=== PATIENT | female | born 1995 | race Caucasian/White ===

== ENCOUNTER 2021-09-29 17:01 | Emergency (ER) | payer BC, SELFPAY ==
[2021-09-29 17:06] VITALS: BP 106/69; PULSE 83; RESP 16; TEMP 36.8; O2SAT 99; BMI 28.2
--- NOTE | 2021-09-29 18:01 | CRLHL7_ITS ---
For Patients: As a result of the Century Cures Act, medical imaging exams and procedure reports are released immediately into your electronic medical record. You may view this report before your referring provider. If you have questions, please contact your health care provider. INDICATION: Mid to right lower quadrant abdominal pain COMPARISON: None TECHNIQUE: CT examination of the abdomen and pelvis was performed following the uneventful intravenous administration of 85 cc of Isovue 370. Thin section axial images were obtained from the lung bases through the pubic symphysis. Oral contrast was not administered. Please note that all CT scans at this facility use dose modulation, iterative reconstruction, and/or weight-based dosing when appropriate to reduce radiation dose to as low as reasonably achievable. FINDINGS: LUNG BASES: The lung bases as visualized appear normal.The heart size is normal at the lung bases. LIVER/BILIARY SYSTEM:The liver is normal in size and configuration. There is no focal mass and there is no intra- or extra hepatic biliary ductal dilatation.The gall bladder appears normal. ADRENALS: Normal KIDNEYS, URETERS and BLADDER:The kidneys appear normal. No visible mass, calculus or hydronephrosis. The ureters and bladder as visualized appear normal. SPLEEN:Normal appearance. PANCREAS: Appears normal. RETROPERITONEUM and MESENTERY: There is no mass, adenopathy or aortic aneurysm. GASTROINTESTINAL SYSTEM: There is no evidence of diverticulitis, colitis, mechanical obstruction, or appendicitis. The small bowel as visualized appears normal.The appendix is well seen and appears normal PELVIS: No mass, adenopathy or free fluid.No adnexal mass OSSEOUS STRUCTURES and ABDOMINAL WALL: There is an age-appropriate appearance of the osseous structures.No significant abdominal wall defect. OTHER: No free fluid or free air. IMPRESSION: Normal examination. No visible cause for abdominal pain. Please note that all CT scans at this facility use dose modulation, iterative reconstruction, and/or weight-based dosing when appropriate to reduce radiation dose to as low as reasonably achievable. Dictated by Lino Chaudhry MD @ 09/29/2021 7:15:10 PM (Electronically Signed)
--- NOTE | 2021-09-29 18:05 | ED.ABDPAIN ---
HPI - Abdominal Pain General Chief Complaint: Abdominal Pain Stated Complaint: UPPER ABDOMINAL PAIN Time Seen by Provider: 09/29/21 17:06 History of Present Illness HPI narrative: This 26-year-old female comes in with abdominal pain that awoke her from sleep this morning at 1:30 a.m.. She measured a temperature of 101? F. She took some mxen-lry-meujlry pain medicines and went back to bed. She was awake again at 3:30 a.m.. She states that the pain seems to come and go and it radiates along her upper abdomen. She did have nausea with 1 episode of vomiting. She states that she does not care to eat food and has not taken any food today. She does not report any dysuria. She thinks that she is not . Prior to this she was in good health. Related Data Home Medications Medication Instructions Recorded Confirmed lamotrigine 100 mg tablet 100 mg PO Q12H 09/29/21 09/29/21 Previous Rx's Medication Instructions Recorded ketorolac 10 mg tablet 10 mg PO TID 5 Days #15 tab 09/29/21 ondansetron HCl 4 mg tablet 4 mg PO Q6H #20 tab 09/29/21 pantoprazole 20 mg tablet,delayed 20 mg PO DAILY #20 tab 09/29/21 release (Protonix) Allergies Allergy/AdvReac Type Severity Reaction Status Date / Time Sulfa (Sulfonamide Allergy Severe Hives Verified 09/29/21 17:10 Antibiotics) Review of Systems Narrative Constitutional: No fevers, no weight gain or loss. Eyes: No discharge. No vision changes. HENT: No congestion, no sore throat, no ear pain. Cardiovascular: No chest pain, no palpitations. Respiratory: No shortness of breath, no wheezes, no cough. Gastrointestinal: Abdominal pain as described above. Nausea with 1 episode of vomiting. Genitourinary: No dysuria, no hematuria. Musculoskeletal: Normal range of motion. Skin: No rashes, no pruritis. Neurological: No dizziness, weakness, sensory change, speech change. Endo/Heme/Allergies: No bruising or bleeding. No polydipsia. Pysch: no suicidality, no anxiety, no insomnia. All other systems reviewed and are negative. PFSH PFSH Social History Smoking Status: Former smoker Do you use any of these nicotine containing products: None Second hand tobacco smoke exposure: No How often do you have a drink containing alcohol: never How often do you have six or more drinks on one occasion: Never AUDIT-C Alcohol total score: 0 Non-prescribed substance use: denies use Exam Narrative: Exam Narrative: Constitutional: Well-developed, well-nourished, no acute distress. HEENT: Normocephalic, atraumatic. Neck: Normal range of motion. Nontender. Supple. Heart: Regular. No murmurs. Normal rate. Intact distal pulses. Lungs: Clear to auscultation. No chest discomfort. No wheezes, rhonchi, or rales. Abdomen: Normal bowel sounds. Tenderness at McBurney's point. Rovsing sign is negative. There is distinct rebound tenderness. Genitalia: Deferred. Back: No midline tenderness. Normal range of motion. Extremities: Normal range of motion. No injury. Skin: Intact. No rash. Warm. No erythema or pallor. Neurologic: No altered sensation. No weakness. Alert and oriented. Psychiatric: No suicidality. No anxiety or depression. No insomnia. Nursing notes and vitals signs are reviewed. Const: Vital Signs, click to edit/add: Vital Signs - 24 hr 09/29/21 17:06 09/29/21 19:00 Temperature 98.3 F Pulse Rate [Pulse Oximeter] 83 71 Respiratory Rate 16 Blood Pressure [Ri t Upper Arm] 106/69 108/73 Pulse Oximetry 99 98 Course Vital Signs Vital signs: Initial Vital Signs Temperature 98.3 F 09/29/21 17:06 Temperature Source Temporal Artery Scan 09/29/21 17:06 Pulse Rate 83 09/29/21 17:06 Respiratory Rate 16 09/29/21 17:06 Blood Pressure 106/69 09/29/21 17:06 Blood Pressure Mean 81 09/29/21 17:06 Blood Pressure Position Sitting 09/29/21 17:06 Pulse Oximetry 99 09/29/21 17:06 Oxygen Delivery Method 09/29/21 17:06 Vital Signs Temperature 98.3 F 09/29/21 17:06 Pulse Rate 83 09/29/21 17:06 Respiratory Rate 16 09/29/21 17:06 Blood Pressure 106/69 09/29/21 17:06 Pulse Oximetry 99 09/29/21 17:06 Temperature 98.3 F 09/29/21 17:06 Pulse Rate 71 09/29/21 19:00 Respiratory Rate 16 09/29/21 17:06 Blood Pressure 108/73 09/29/21 19:00 Pulse Oximetry 98 09/29/21 19:00 MDM - Abdominal Pain MDM Narrative Medical decision making narrative: This patient comes in with abdominal pain as described above. She does have distinct rebound tenderness and tenderness when palpating in the right lower quadrant. She described pain as intermittent in her upper abdomen and currently does not have any tenderness when palpating along her upper abdomen. For these reasons I did do a CT scan of her abdomen and pelvis with IV contrast which showed no sign of appendicitis. Actually her labs and imaging results are all in normal range. This is reassuring to the patient. She is okay to return home and received prescriptions for Protonix, Toradol, and Zofran. I advised her to follow-up with her primary physician if pain is persistent. She can return here if worsening pain happens. Lab Data Labs: Lab Results 09/29/21 09/29/21 09/29/21 Range/Units 18:10 18:10 18:10 WBC 6.78 (4.50-11.00) K/uL RBC 4.38 (4.00-5.20) m/uL Hgb 12.7 (12.0-16.0) gm/dL Hct 39.8 (33.0-51.0) % MCV 91 (80-100) fL MCH 29 (26-34) pg MCHC 32 (32-36) gm/dL RDW Coeff of Dante 12.0 (11.5-15.5) % Plt Count 261 (140-440) K/uL Neut % (Auto) 69.4 (42.0-72.0) % Lymph % (Auto) 22.3 (20-44) % [place] % (Auto) 6.9 (0.0-11.0) % Eos % (Auto) 1.3 (0.0-7.0) % Baso % (Auto) 0.0 (0.0-3.0) % Neut # (Auto) 4.70 (1.7-7.0) K/uL Lymph # (Auto) 1.51 (0.90-2.90) K/uL [place] # (Auto) 0.50 (0.00-0.90) K/UL Eos # (Auto) 0.09 (0.00-0.50) K/uL Baso # (Auto) 0.00 (0.00-0.30) K/uL Abs Immat Gran (auto) 0.01 (0.00-0.30) K/uL Sodium 137 (135-149) mmol/L Potassium 3.8 (3.6-5.1) mmol/L Chloride 104 (96-114) mmol/L Carbon Dioxide 26 (20-32) mmol/L BUN 18 (5-24) mg/dL Creatinine 0.7 (0.5-1.5) mg/dL Estimated Creat Clear 115.01 Estimated GFR 123 ml/min Glucose 88 (60-115) mg/dL Calcium 9.0 (8.4-10.6) mg/dL HCG, Qual Negative (Negative) Imaging Data CT scan - abdomen: Radiologist's impression: Normal examination. No visible cause for abdominal pain. Discharge Plan Discharge Clinical Impression: Abdominal pain Patient Disposition: Home, Self-Care Condition: Stable Instructions: Abdominal Pain (ED) Additional Instructions: Take medications as needed and prescribed. Follow up with primary physician for further evaluation if pain is persistent. Return to emergency department if worsening symptoms happen. Prescriptions: New ondansetron HCl 4 mg tablet 4 mg PO Q6H Qty: 20 0RF ketorolac 10 mg tablet 10 mg PO TID 5 Days Qty: 15 0RF pantoprazole [Protonix] 20 mg tablet,delayed release (DR/EC) 20 mg PO DAILY Qty: 20 2RF No Action lamotrigine 100 mg tablet 100 mg PO Q12H 0RF Follow Up/Referrals: Kaylee Trejo MD [Primary Care Provider] - Stand Alone Forms: [employer] Info Instructions
[2021-09-29 18:23] LABS: Eosinophils Absolute Auto 0.09 K/uL (0.00-0.50); Eosinophils Percent Auto 1.3 % (0.0-7.0); Hematocrit 39.8 % (33.0-51.0); Hemoglobin* 12.7 gm/dL (12.0-16.0); Immature Granulocytes Abs Auto 0.01 K/uL (0.00-0.30); Lymphocytes Absolute Auto 1.51 K/uL (0.90-2.90); Lymphocytes Percent Auto 22.3 % (20-44); Mean Corpuscular HGB Conc 32 gm/dL (32-36); Mean Corpuscular Hemoglobin 29 pg (26-34); Mean Corpuscular Volume 91 fL (80-100); Monocytes Percent Auto 6.9 % (0.0-11.0); Neutrophils Percent Auto 69.4 % (42.0-72.0); Platelet Count* 261 K/uL (140-440); Red Blood Count 4.38 m/uL (4.00-5.20); Slide Review Reflex No; White Blood Count* 6.78 K/uL (4.50-11.00)
[2021-09-29 18:36] LABS: Chloride* 104 mmol/L (96-114); Potassium* 3.8 mmol/L (3.6-5.1); Sodium* 137 mmol/L (135-149)
[2021-09-29 18:39] LABS: Carbon Dioxide* 26 mmol/L (20-32); Creatinine* 0.7 mg/dL (0.5-1.5); Est. Creatinine Clearance* 115.01; Estimated Glomerular Filt Rate 123 ml/min
[2021-09-29 18:40] LABS: Blood Urea Nitrogen* 18 mg/dL (5-24); Glucose* 88 mg/dL (60-115)
[2021-09-29 18:43] LABS: HCG Qualitative Serum* Negative (Negative)
[2021-09-29 19:00] VITALS: BP 108/73; PULSE 71; O2SAT 98
[2021-09-29 19:30] VITALS: BP 107/62
[2021-09-29 20:00] VITALS: BP 106/64
== END 2021-09-29 20:12 | disposition home or self-care (01) ==
PROVIDERS: Emergency Provider Emergency Medicine Emergency Medical Services; PCP Family Medicine
DX: R10.9 Unspecified abdominal pain (principal)
CPT/HCPCS: 36415; 74177; 80048; 84703; 85025; 99284; Q9967

== ENCOUNTER 2022-02-04 09:57 | Emergency (ER) | payer BC, SELFPAY ==
--- NOTE | 2022-02-04 10:02 | CRLHL7_ITS ---
For Patients: As a result of the Century Cures Act, medical imaging exams and procedure reports are released immediately into your electronic medical record. You may view this report before your referring provider. If you have questions, please contact your health care provider. Indication: Pelvic pain, medical 1 month prior. Technique: Grayscale, spectral and color Doppler images of the pelvis, transabdominal and transvaginal Comparison: None Findings: The uterus is anteverted and measures 9.8 x 4.2 x 5.0 centimeters. No uterine mass. The endometrium is heterogeneous and measures up to 1.4 centimeters. There is significant vascularity near the uterine fundus (series 2 image 7424). The ovaries appear normal. No ovarian mass. Normal ovarian blood flow. No significant free fluid. Visualized bladder is unremarkable. Impression: Heterogeneous, hypervascular endometrium, especially near the fundus which may represent retained products of conception and blood products. A vascular malformation is also a consideration although considered less likely. Dictated by Tolu Montesinos MD @ 02/04/2022 12:05:40 PM (Electronically Signed)
[2022-02-04 10:03] VITALS: O2SAT 95
[2022-02-04 10:11] VITALS: BP 118/81; PULSE 89; RESP 16; TEMP 36.7; O2SAT 100
--- NOTE | 2022-02-04 10:23 | ED_ITS ---
HPI - Abdominal Pain General Time Seen by Provider: 10:23 Date Seen: 02/04/22 Chief Complaint: Abdominal Pain Stated Complaint: Termination preg Halloween, still preg poss septic Time Seen by Provider: 02/04/22 10:23 Source: patient, RN notes reviewed and other (Phone report from Dr. Sargent in Urgent Care) Mode of arrival: ambulatory Limitations: no limitations History of Present Illness HPI narrative: Patient is a 26-year-old female referred to us from urgent care where she was seen by Dr. Sargent. She was worried about a septic . However, on talking to the patient she had oral medicine on I believe through the [facility] for medically induced . This past weekend she had severe perineal pain, went to clinic this week at [facility] and was diagnosed with herpes. This would be an initial herpes outbreak for her. She last use ibuprofen around 3 or so this morning. She is having severe pelvic pain. She states she did have prior ongoing positive test at the end of January, did have an hCG level which she reported to be 65 at clinic. She is also reporting some mild scratchy sore throat with the scratchy cough that is developed this week. Reportedly had fever in the last couple days up to 102.6. Related Data Patient : Yes Home Medications Medication Instructions Recorded Confirmed valacyclovir 500 mg tablet 500 mg PO BID 02/04/22 02/04/22 (Valtrex) Allergies Allergy/AdvReac Type Severity Reaction Status Date / Time Sulfa (Sulfonamide Allergy Severe Hives Verified 02/04/22 09:26 Antibiotics) Review of Systems Status of ROS Reports: 10 or more systems reviewed and unremarkable except as noted in History and below PFSH PFSH Social History Smoking Status: Former smoker Do you use any of these nicotine containing products: None Second hand tobacco smoke exposure: No How often do you have a drink containing alcohol: never How often do you have six or more drinks on one occasion: Never AUDIT-C Alcohol total score: 0 Non-prescribed substance use: denies use service: No Exam Const: Vital Signs, click to edit/add: Vital Signs - 24 hr 02/04/22 10:11 02/04/22 10:03 Temperature 98.1 F Pulse Rate [Pulse Oximeter] 89 Respiratory Rate 16 Blood Pressure [Ri ght Upper Arm] 118/81 Pulse Oximetry 100 95 Oxygen Delivery Me thod Room Air Documenting provider has reviewed patient's vital signs: yes Common normals: average body habitus, oriented x3, no limitations and alert General appearance: cooperative and in distress (Walks very slowly and gingerly) moderate HENMT: Common normals: normocephalic, head/scalp atraumatic, hearing grossly normal bilaterally, external nose normal, nasal mucous membranes and turbinates normal, moist oral mucous membranes, oropharynx normal, dentition normal and gingiva normal Head and scalp: normocephalic and atraumatic Nose: external nose normal and nasal mucous membranes and turbinates normal Eye: Common normals: PERRL, EOMs intact bilaterally, conjunctivae normal and no scleral icterus Conjunctiva: conjunctiva(e) normal Pupil: PERRL Neck & C-Spine: Common normals: full ROM, no lymphadenopathy, supple, no meningeal signs, no JVD and thyroid normal Thyroid: thyroid normal Resp: Common normals: normal respiratory effort, no retractions, no use of accessory muscles and clear to auscultation bilaterally Auscultation: clear to auscultation bilaterally Cardio: Common normals: no JVD, regular rate, regular rhythm, S1 normal heart sound, S2 normal heart sound, no gallops, no clicks and no murmurs Rate: regular rate Rhythm: regular rhythm Heart sounds: S1 normal and S2 normal GI: Other: Complains abdominal pain throughout her abdomen, no rebound or guarding and no masses. Belly is nondistended, normal bowel sounds. : Other: Is extremely tender in her perineum. Has some whitish exudate along the base of the vaginal introitus and along that right perineum. No significant erythema seen but patient is tender to the point I really cannot visualize the area very well. Her labia are normal. I do not feel any significant inguinal adenopathy at this time. Neuro: Common normals: oriented x3 Sensorium/orientation: alert Meningeal signs: no meningeal signs Course Course Hospital Course: Will obtain a pelvic ultrasound to see there still visualization of any retained products of conception, with her fever and the reported HSV, think the pelvic pain and the symptoms might be more from her initial herpes outbreak. She is obviously very painful. Will give her 15 mg IV Toradol. We will also do full complement of blood work, also look at influenza and COVID given her respiratory symptoms. Will need to sort her symptoms and this history out a bit more, will rely on the imaging and labs to help direct us. She is hemodynamically stable at this time, afebrile here. Would be unlikely to have a septic wit hout instrumentation. Reevaluation(s) Reevaluation #1: Reviewed with patient my conversation with Dr. Abarca. She is to follow up in [facility] clinic early next week, I will give her the phone number. She needs to complete the Valtrex. Did discuss pain management. She states she is restricted, all of her medications need to come through her doctor. She will continue on Tylenol ibuprofen. I will give her 50 mg oral tramadol here. There may indeed still be some retained products of conception the uterus, hCG is trending down however. She is not actively hemorrhaging or bleeding. This can be followed clinically. A D&C would not be indicated in certainly should not be done while she is having such an active herpes outbreak. Patient unfortunately contracted this with a 1 time partner the did not disclose anything to her. She states she cried when she found out. I did attempt to reassure her and review with her that this will feel better eventually. Time: 12:47 Consultations Consultation #1: Called Dr. Abarca from [facility]. Reviewed the case. She agrees D&C is not indicated at this time. Would follow clinically. We will get her the phone number to schedule followup in clinic next week. Time: 12:35 Vital Signs Vital signs: Initial Vital Signs Pulse Oximetry 95 02/04/22 10:03 Vital Signs Pulse Oximetry 95 02/04/22 10:03 Temperature 98.1 F 02/04/22 10:11 Pulse Rate 89 02/04/22 10:11 Respiratory Rate 16 02/04/22 10:11 Blood Pressure 118/81 02/04/22 10:11 Pulse Oximetry 100 02/04/22 10:11 Oxygen Delivery Method 02/04/22 10:11 MDM - Abdominal Pain Lab Data Attestation: I reviewed the patient's lab results. Labs: Lab Results 02/04/22 02/04/22 02/04/22 Range/Units 10:11 10:45 10:55 WBC 8.14 (4.50-11.00) K/uL RBC 4.74 (4.00-5.20) m/uL Hgb 13.6 (12.0-16.0) gm/dL Hct 42.8 (33.0-51.0) % MCV 90 (80-100) fL MCH 29 (26-34) pg MCHC 32 (32-36) gm/dL RDW Coeff of Dante 12.3 (11.5-15.5) % Plt Count 226 (140-440) K/uL Neut % (Auto) 63.4 (42.0-72.0) % Lymph % (Auto) 28.6 (20-44) % [place] % (Auto) 5.2 (0.0-11.0) % Eos % (Auto) 2.3 (0.0-7.0) % Baso % (Auto) 0.1 (0.0-3.0) % Neut # (Auto) 5.16 (1.7-7.0) K/uL Lymph # (Auto) 2.33 (0.90-2.90) K/uL [place] # (Auto) 0.40 (0.00-0.90) K/UL Eos # (Auto) 0.19 (0.00-0.50) K/uL Baso # (Auto) 0.01 (0.00-0.30) K/uL Abs Immat Gran (auto) 0.03 (0.00-0.30) K/uL Imm/Tot Granulo (auto) 0.4 % Diff Slide Review Acceptable Review (Acceptable) Sodium (135-149) mmol/L Potassium (3.6-5.1) mmol/L Chloride (96-114) mmol/L Carbon Dioxide (20-32) mmol/L BUN (5-24) mg/dL Creatinine (0.5-1.5) mg/dL Estimated Creat Clear Estimated GFR ml/min Glucose (60-115) mg/dL Lactate (0.5-1.9) mmol/L Calcium (8.4-10.6) mg/dL Total Bilirubin (0.1-1.5) mg/dL AST (12-35) U/L ALT (4-35) U/L Alkaline Phosphatase (40-150) U/L C-Reactive Protein (0.5-1.0) mg/dL Total Protein (6.0-8.3) g/dL Albumin (3.3-5.0) g/dL HCG, Quant mIU/mL Urine Color Yellow (Yellow) Urine Appearance Slightly Cloudy A (Clear) Urine pH 5.5 (5.0-8.5) Ur Specific [place] 1.025 (1.000-1.030) Urine Protein Negative (Negative) Urine Glucose (UA) Negative (Negative) Urine Ketones Negative (Negative) Urine Blood Trace-intact A (Negative) Urine Nitrite Negative (Negative) Urine Bilirubin Negative (Negative) Urine Urobilinogen 0.2 (0.2-1.0) Ur Leukocyte Esterase 1+ A (Negative) Urine RBC 0-2 (0-2) Urine WBC 5-10 A (0-5) Ur Squamous Epith Cells Moderate A (None-Few) Urine Bacteria Moderate A (None) SARS-CoV-2 (PCR) Negative SARS-CoV-2 (Negative) Influenza Type A (PCR) Negative PCR FLU A (Negative) Influenza Type B (PCR) Negative PCR FLU B (Negative) 02/04/22 02/04/22 02/04/22 Range/Units 10:55 10:55 10:55 WBC (4.50-11.00) K/uL RBC (4.00-5.20) m/uL Hgb (12.0-16.0) gm/dL Hct (33.0-51.0) % MCV (80-100) fL MCH (26-34) pg MCHC (32-36) gm/dL RDW Coeff of Dante (11.5-15.5) % Plt Count (140-440) K/uL Neut % (Auto) (42.0-72.0) % Lymph % (Auto) (20-44) % [place] % (Auto) (0.0-11.0) % Eos % (Auto) (0.0-7.0) % Baso % (Auto) (0.0-3.0) % Neut # (Auto) (1.7-7.0) K/uL Lymph # (Auto) (0.90-2.90) K/uL [place] # (Auto) (0.00-0.90) K/UL Eos # (Auto) (0.00-0.50) K/uL Baso # (Auto) (0.00-0.30) K/uL Abs Immat Gran (auto) (0.00-0.30) K/uL Imm/Tot Granulo (auto) % Diff Slide Review (Acceptable) Sodium 141 (135-149) mmol/L Potassium 4.1 (3.6-5.1) mmol/L Chloride 107 (96-114) mmol/L Carbon Dioxide 26 (20-32) mmol/L BUN 14 (5-24) mg/dL Creatinine 0.7 (0.5-1.5) mg/dL Estimated Creat Clear 110.55 Estimated GFR 123 ml/min Glucose 100 (60-115) mg/dL Lactate 0.7 (0.5-1.9) mmol/L Calcium 9.0 (8.4-10.6) mg/dL Total Bilirubin 0.3 (0.1-1.5) mg/dL AST 30 (12-35) U/L ALT 34 (4-35) U/L Alkaline Phosphatase 70 (40-150) U/L C-Reactive Protein 2.5 H (0.5-1.0) mg/dL Total Protein 8.0 (6.0-8.3) g/dL Albumin 4.5 (3.3-5.0) g/dL HCG, Quant 34.02 mIU/mL Urine Color (Yellow) Urine Appearance (Clear) Urine pH (5.0-8.5) Ur Specific [place] (1.000-1.030) Urine Protein (Negative) Urine Glucose (UA) (Negative) Urine Ketones (Negative) Urine Blood (Negative) Urine Nitrite (Negative) Urine Bilirubin (Negative) Urine Urobilinogen (0.2-1.0) Ur Leukocyte Esterase (Negative) Urine RBC (0-2) Urine WBC (0-5) Ur Squamous Epith Cells (None-Few) Urine Bacteria (None) SARS-CoV-2 (PCR) (Negative) Influenza Type A (PCR) (Negative) Influenza Type B (PCR) (Negative) Imaging Data Ultrasound pelvis: Attestation: I have reviewed the pertinent imaging results. Radiologist's impression: Patient: AMIRA MYLES Facility:?[facility] Patient ID:?[id number] Site Patient ID:?[id number]. Site :?[id number] Study:? Pelvis -02/04/2022 11:45:49 AM Ordering Physician:?Suchomel-Eastman Cheryle Final Report: Indication: Pelvic pain, medical 1 month prior. Technique: Grayscale, spectral and color Doppler images of the pelvis, transabdominal and transvaginal Comparison: None Findings: The uterus is anteverted and measures 9.8 x 4.2 x 5.0 centimeters. No uterine mass. The endometrium is heterogeneous and measures up to 1.4 centimeters. There is significant vascularity near the uterine fundus (series 2 image [id number]). The ovaries appear normal. No ovarian mass. Normal ovarian blood flow. No significant free fluid. Visualized bladder is unremarkable. Impression: Heterogeneous, hypervascular endometrium, especially near the fundus which may represent retained products of conception and blood products. A vascular malformation is also a consideration although considered less likely. Dictated by Tolu Montesinos MD @ 02/04/2022 12:05:40 PM (Electronic Signature) Critical Care Time Critical Care Time Critical Care Time: No Discharge Plan Discharge Clinical Impression: Elevated serum hCG, Genital herpes, Complication following medical Patient Disposition: Home, Self-Care Condition: Stable Instructions: Genital Herpes Simplex (ED) Additional Instructions: Call [phone] on Sunday morning to get scheduled for follow-up in women's health clinic. Please let them know that Dr. Abarca requested you to be seen early this next week. Continue with Tylenol and ibuprofen per bottle directions as needed for pain control. Need to complete your Valtrex that you are on. Activity Level: Activity as Tolerated Prescriptions: No Action valacyclovir [Valtrex] 500 mg tablet 500 mg PO BID Follow Up/Referrals: Kaylee Trejo MD [Primary Care Provider] - Stand Alone Forms: [employer] Info Instructions
[2022-02-04] MEDS: KETOROLAC 15 MG/ML inj IVP (11:01)
[2022-02-04 11:03] LABS: Lactate* 0.7 mmol/L (0.5-1.9)
[2022-02-04 11:04] LABS: Basophils Absolute Auto 0.01 K/uL (0.00-0.30); Basophils Percent Auto 0.1 % (0.0-3.0); Eosinophils Absolute Auto 0.19 K/uL (0.00-0.50); Eosinophils Percent Auto 2.3 % (0.0-7.0); Hematocrit 42.8 % (33.0-51.0); Hemoglobin* 13.6 gm/dL (12.0-16.0); Immature Granulocytes Abs Auto 0.03 K/uL (0.00-0.30); Immature Granulocytes Pct Auto 0.4 %; Lymphocytes Absolute Auto 2.33 K/uL (0.90-2.90); Lymphocytes Percent Auto 28.6 % (20-44); Mean Corpuscular HGB Conc 32 gm/dL (32-36); Mean Corpuscular Hemoglobin 29 pg (26-34); Mean Corpuscular Volume 90 fL (80-100); Monocytes Percent Auto 5.2 % (0.0-11.0); Neutrophils Absolute Auto 5.16 K/uL (1.7-7.0); Neutrophils Percent Auto 63.4 % (42.0-72.0); Platelet Count* 226 K/uL (140-440); RDW Coefficient of Variation % 12.3 % (11.5-15.5); Red Blood Count 4.74 m/uL (4.00-5.20); White Blood Count* 8.14 K/uL (4.50-11.00)
[2022-02-04 11:15] LABS: Appearance Urine Slightly Cloudy (Clear); Bilirubin Urine Negative (Negative); Blood Urine Trace-intact (Negative); Color Urine Yellow (Yellow); Glucose Urine Negative (Negative); Ketones Urine Negative (Negative); Leukocyte Esterase Urine 1+ (Negative); Nitrite Urine Negative (Negative); Protein Urine Negative (Negative); Specific Gravity Urine 1.025 (1.000-1.030); Urobilinogen Urine 0.2 (0.2-1.0); pH Urine 5.5 (5.0-8.5)
[2022-02-04 11:22] LABS: Albumin* 4.5 g/dL (3.3-5.0); Chloride* 107 mmol/L (96-114)
[2022-02-04 11:23] LABS: Potassium* 4.1 mmol/L (3.6-5.1); Sodium* 141 mmol/L (135-149)
[2022-02-04 11:25] LABS: Alkaline Phosphatase* 70 U/L (40-150); Aspartate Amino Transferase* 30 U/L (12-35); Bilirubin Total* 0.3 mg/dL (0.1-1.5); Carbon Dioxide* 26 mmol/L (20-32); Creatinine* 0.7 mg/dL (0.5-1.5); Est. Creatinine Clearance* 110.55; Estimated Glomerular Filt Rate 123 ml/min
[2022-02-04 11:26] LABS: Alanine Aminotransferase* 34 U/L (4-35); Blood Urea Nitrogen* 14 mg/dL (5-24); Glucose* 100 mg/dL (60-115)
[2022-02-04 11:28] LABS: C Reactive Protein* 2.5 mg/dL (0.5-1.0)
[2022-02-04 11:42] LABS: HCG Quantitative* 34.02 mIU/mL
[2022-02-04 11:44] LABS: PCR FLU A Negative PCR FLU A (Negative); PCR FLU B Negative PCR FLU B (Negative)
[2022-02-04 11:44] LABS: Slide Review Reflex Yes
[2022-02-04 11:45] LABS: Slide Review Acceptable Review (Acceptable)
[2022-02-04 11:54] LABS: Bacteria Urine Moderate; RBC Urine 0-2 (0-2); Squamous Epithelial Cell Urine Moderate (None-Few)
[2022-02-04 11:59] LABS: SARS PCR* Negative SARS-CoV-2 (Negative)
[2022-02-04] MEDS: TRAMADOL HCL 50 MG TABLET PO (12:54)
== END 2022-02-04 13:07 | disposition home or self-care (01) ==
PROVIDERS: Emergency Provider Family Medicine; PCP Family Medicine
DX: O02.81 Inappropriate change in quantitative human chorionic gonadotropin (hCG) in early pregnancy (principal); O04.80 (Induced) termination of pregnancy with unspecified complications; A60.04 Herpesviral vulvovaginitis
CPT/HCPCS: 36415; 76856; 80053; 81001; 83605; 84702; 84703; 85025; 86140; 87040; 87086; 87631; 87635; 87804; 93976; 94761; 96374; 99284; A9270; J1885

== ENCOUNTER 2023-10-21 06:07 | Emergency (ER) | payer BC, SELFPAY ==
[2023-10-21 06:20] VITALS: BP 122/84; PULSE 104; RESP 18; TEMP 37; O2SAT 98; BMI 28.2
--- NOTE | 2023-10-21 06:20 | ED_ITS ---
HPI - General Adult General Time Seen by Provider: 06:25 Date Seen: 10/21/23 Chief complaint: Cough Stated complaint: Sick for over a week Time Seen by Provider: 10/21/23 06:20 Source: patient, RN notes reviewed and old records reviewed Mode of arrival: ambulatory Limitations: no limitations History of Present Illness HPI narrative: 28-year-old female who comes in today with upper respiratory symptoms going on for about a week. She says ?everything but vomiting including cough, runny nose, sore throat, diarrhea, fever, body aches. She has been taking over-the- counter decongestants as well as ibuprofen for this, last dose of ibuprofen was 2 hours prior to coming emergency department. Related Data Home Medications ?Medication ?Instructions ?Recorded ?Confirmed valacyclovir 500 mg tablet 500 mg PO BID 02/04/22 07/22/23 (Valtrex) Allergies Allergy/AdvReac Type Severity Reaction Status Date / Time Sulfa (Sulfonamide Allergy Severe Hives Verified 10/21/23 06:22 Antibiotics) etonogestrel [From Nexplanon] Allergy Verified 10/21/23 06:22 PFSH PFS Social History Smoking Status: Former smoker Do you use any of these nicotine containing products: None Second hand tobacco smoke exposure: No How often do you have a drink containing alcohol: never How often do you have six or more drinks on one occasion: Never AUDIT-C Alcohol total score: 0 Non-prescribed substance use: denies use service: No Exam Narrative: Exam Narrative: General: Well-developed and well-nourished, no acute distress Head: Atraumatic and normocephalic Eyes: Pupils are equal reactive, extraocular motions intact, conjunctiva clear ENT: External nose and ears are normal, posterior pharynx without erythema or exudate Neck: No midline cervical tenderness, full spontaneous range of motion the neck, trachea midline, no adenopathy Heart: Regular rate and rhythm no murmurs or thrills Lungs: Clear to auscultation bilaterally without wheezes or crackles Abdomen: Soft, nontender, nondistended with active bowel sounds Musculoskeletal: No tenderness, deformity, or edema Neurologic: Awake, alert, and oriented x3, no gross focal neurologic deficits, cranial nerves intact as tested Psych: Mood and affect are appropriate Skin: No rashes Const: Vital Signs, click to edit/add: Vital Signs - 24 hr 10/21/23 06:20 Temperature 98.6 F Pulse Rate [Right Pulse Oximeter] 104 H Respiratory Rate 18 Blood Pressure [Ri ght Upper Arm] 122/84 Pulse Oximetry 98 Oxygen Delivery Me de guzman Room Air Course Course ED Course: Patient seen and examined, presents today with upper respiratory symptoms for about a week. On exam here, tachycardic, upper airway noises but the lungs are clear and no wheezing, no abdominal tenderness. Patient is afebrile but tachycardic. Labs ordered, IV fluids will be given and plan for discharge. Reevaluation(s) Time of Reevaluation #1: 06:40 Reevaluation #1: Chest x-ray ordered and independently interpreted by me does not demonstrate acute intrathoracic findings, no infiltrate. Time of Reevaluation #2: 07:17 Reevaluation #2: Respiratory panel is negative. Patient will given a DuoNeb to see if that helps with her cough and congestion, otherwise continue symptom management. Vital Signs Vital signs: Initial Vital Signs Temperature 98.6 F 10/21/23 06:20 Temperature Source Temporal Artery Scan 10/21/23 06:20 Pulse Rate 104 H 10/21/23 06:20 Pulse Rhythm Regular 10/21/23 06:20 Pulse Strength 3+ Normal 10/21/23 06:20 Respiratory Rate 18 10/21/23 06:20 Blood Pressure 122/84 10/21/23 06:20 Blood Pressure Mean 96 10/21/23 06:20 Blood Pressure Position Supine 10/21/23 06:20 Pulse Oximetry 98 10/21/23 06:20 Oxygen Delivery Method Room Air 10/21/23 06:20 Vital Signs Temperature 98.6 F 10/21/23 06:20 Pulse Rate 104 H 10/21/23 06:20 Respiratory Rate 18 10/21/23 06:20 Blood Pressure 122/84 10/21/23 06:20 Pulse Oximetry 98 10/21/23 06:20 Oxygen Delivery Method Room Air 10/21/23 06:20 Temperature 98.6 F 10/21/23 06:20 Pulse Rate 104 H 10/21/23 06:20 Respiratory Rate 18 10/21/23 06:20 Blood Pressure 122/84 10/21/23 06:20 Pulse Oximetry 98 10/21/23 06:20 Oxygen Delivery Method Room Air 10/21/23 06:20 Medications Administered Medications: Generic Name Dose Route Start Last Admin Trade Name Thomas PRN Reason Stop Dose Admin Sodium Chloride 1,000 mls @ 1,000 mls/hr 10/21/23 06:30 10/21/23 06:48 0.9 % Sodium Chloride 1000 Ml IV 10/21/23 07:29 1,000 mls/hr .Q1H VIANEY Administration Medical Decision Making Lab Data Labs: Lab Results 10/21/23 Range/Units 06:23 SARS-CoV-2 (PCR) Negative SARS-CoV-2 (Negative) Influenza Type A (PCR) Negative PCR FLU A (Negative) Influenza Type B (PCR) Negative PCR FLU B (Negative) RSV (PCR) Negative PCR RSV (Negative) Discharge Plan Discharge Clinical Impression: Acute upper respiratory infection Patient Disposition: Home, Self-Care Condition: Stable Instructions: Viral Syndrome (ED) Additional Instructions: Continue Tylenol and ibuprofen for pain Take prednisone as prescribed Use your albuterol inhaler as needed Activity Level: Activity as Tolerated Discharge Diet: Regular Prescriptions: No Action valacyclovir [Valtrex] 500 mg tablet 500 mg PO BID Follow Up/Referrals: Kaylee Trejo MD [Primary Care Provider] - Stand Alone Forms: [employer] Info Instructions
--- NOTE | 2023-10-21 06:26 | CRLHL7_ITS ---
For Patients: As a result of the Century Cures Act, medical imaging exams and procedure reports are released immediately into your electronic medical record. You may view this report before your referring provider. If you have questions, please contact your health care provider. INDICATION: COUGH, SOB TECHNIQUE: Chest 1 view. COMPARISON: None FINDINGS: Cardiovascular and mediastinum: Heart size and vasculature are normal in caliber and appearance. Mediastinum is within normal limits. Lungs and pleural space: Lungs are clear. No sign of infiltrate or mass. No sign of pleural effusion. No pneumothorax. Bones and soft tissues: No significant findings. IMPRESSION: Unremarkable chest. Dictated by: Amol Kearns MD @ 10/21/2023 06:55:47 (Electronically Signed)
[2023-10-21] MEDS: 0.9 % SODIUM CHLORIDE 1000 ml 1,000 ML IV (06:48)
[2023-10-21 07:14] LABS: PCR FLU A Negative PCR FLU A (Negative); PCR FLU B Negative PCR FLU B (Negative); PCR RSV Negative PCR RSV (Negative); SARS PCR* Negative SARS-CoV-2 (Negative)
[2023-10-21] MEDS: IPRAT-ALBUT 0.5-2.5 MG/3 ML NEB 1 NEB IH (07:23)
== END 2023-10-21 07:34 | disposition home or self-care (01) ==
PROVIDERS: Emergency Provider Family Medicine; PCP Family Medicine
DX: J06.9 Acute upper respiratory infection, unspecified (principal)
CPT/HCPCS: 71045; 87631; 99283; 99284; J7030

== ENCOUNTER 2024-07-28 06:47 | Outpatient (CLI) | payer BC, SELFPAY | END 2024-07-28 06:48 | disposition home or self-care (01) | PROVIDERS: PCP Family Medicine; Visit Provider Family Medicine | DX: F29 Unspecified psychosis not due to a substance or known physiological condition (principal) | CPT/HCPCS: A0998 ==

== ENCOUNTER 2024-12-22 08:17 | Emergency (ER) | payer BC, SELFPAY ==
[2024-12-22 08:23] VITALS: BP 121/66; PULSE 79; RESP 18; TEMP 37.1; O2SAT 100
--- NOTE | 2024-12-22 08:47 | ED_ITS ---
HPI - Abdominal Pain General Chief Complaint: Abdominal Pain Stated Complaint: L side/uterine pain Time Seen by Provider: 12/22/24 08:17 History of Present Illness HPI narrative: This 29-year-old female comes in reporting left-sided abdominal pain for the past week. She states that it comes and goes sometimes it is very intense. She does report a history of kidney stones. She also has a history of an ovarian cyst. She has associated nausea with vomiting at times. Related Data Home Medications ?Medication ?Instructions ?Recorded ?Confirmed valacyclovir 500 mg tablet 500 mg PO BID 02/04/2212/04 (Valtrex) linaclotide 290 mcg capsule 290 mcg PO DAILY 07/26/24 12/22/24 (Linzess) hydroxyzine HCl 50 mg tablet 50 mg PO QHS PRN 12/22/24 12/22/24 Previous Rx's ?Medication ?Instructions ?Recorded hydrocodone 5 mg-acetaminophen 325 1 tab PO Q4-6H PRN pain #15 tabs 12/22/24 mg tablet ketorolac 10 mg tablet 10 mg PO TID 5 days #15 tabs 12/22/24 ondansetron HCl 4 mg tablet 4 mg PO Q6H #20 tabs 12/22 Allergies Allergy/AdvReac Type Severity Reaction Status Date / Time Sulfa (Sulfonamide Allergy Severe Hives Verified 12/22/24 08:29 Antibiotics) etonogestrel (From Nexplanon) Allergy Verified 12/22/24 08:29 Review of Systems Status of ROS Reports: 10 or more systems reviewed and unremarkable except as noted in History and below Narrative Constitutional: No fevers, no weight gain or loss. Eyes: No discharge. No vision changes. HENT: No congestion, no sore throat, no ear pain. Cardiovascular: No chest pain, no palpitations. Respiratory: No shortness of breath, no wheezes, no cough. Gastrointestinal: No diarrhea. Abdominal pain with associated nausea and vomiting. Genitourinary: No dysuria, no hematuria. Musculoskeletal: Normal range of motion. Skin: No rashes, no pruritis. Neurological: No dizziness, weakness, sensory change, speech change. Endo/Heme/Allergies: No bruising or bleeding. No polydipsia. Pysch: no suicidality, no anxiety, no insomnia. All other systems reviewed and are negative. PFSH PFSH Social History Smoking Status: Former smoker Do you use any of these nicotine containing products: None Second hand tobacco smoke exposure: No How often do you have a drink containing alcohol: monthly or less How often do you have six or more drinks on one occasion: Never AUDIT-C Alcohol total score: 1 Non-prescribed substance use: denies use service: No Exam Narrative: Exam Narrative: Constitutional: Well-developed, well-nourished, no acute distress. HEENT: Normocephalic, atraumatic. Neck: Normal range of motion. Nontender. Supple. Heart: Regular. No murmurs. Normal rate. Intact distal pulses. Lungs: Clear to auscultation. No chest discomfort. No wheezes, rhonchi, or rales. Abdomen: Normal bowel sounds. Tenderness in the left abdomen. No rebound tenderness. Genitalia: Deferred. Back: No midline tenderness. Normal range of motion. Extremities: Normal range of motion. No injury. Skin: Intact. No rash. Warm. No erythema or pallor. Neurologic: No altered sensation. No weakness. Alert and oriented. Psychiatric: No suicidality. No anxiety or depression. No insomnia. Nursing notes and vitals signs are reviewed. Const: Vital Signs, click to edit/add: Vital Signs - 24 hr 12/22/24 08:23 Temperature 98.8 F Pulse Rate [Right Pulse Oximeter] 79 Respiratory Rate 18 Blood Pressure [Ri ght Upper Arm] 121/66 Pulse Oximetry 100 Oxygen Delivery Me thod Room Air Course Vital Signs Vital signs: Initial Vital Signs Temperature 98.8 F 12/22/24 08:23 Temperature Source Temporal Artery Scan 12/22/24 08:23 Pulse Rate 79 12/22/24 08:23 Pulse Rhythm Regular 12/22/24 08:23 Pulse Strength 3+ Normal 12/22/24 08:23 Respiratory Rate 18 12/22/24 08:23 Blood Pressure 121/66 12/22/24 08:23 Blood Pressure Mean 84 12/22/24 08:23 Blood Pressure Position Sitting 12/22/24 08:23 Pulse Oximetry 100 12/22/24 08:23 Oxygen Delivery Method Room Air 12/22/24 08:23 Vital Signs Temperature 98.8 F 12/22/24 08:23 Pulse Rate 79 12/22/24 08:23 Respiratory Rate 18 12/22/24 08:23 Blood Pressure 121/66 12/22/24 08:23 Pulse Oximetry 100 12/22/24 08:23 Oxygen Delivery Method Room Air 12/22/24 08:23 Temperature 98.8 F 12/22/24 08:23 Pulse Rate 79 12/22/24 08:23 Respiratory Rate 18 12/22/24 08:23 Blood Pressure 121/66 12/22/24 08:23 Pulse Oximetry 100 12/22/24 08:23 Oxygen Delivery Method Room Air 12/22/24 08:23 Medications Administered Medications: Discontinued Medications Generic Name Dose Route Start Last Admin Trade Name Freq PRN Reason Stop Dose Admin Ketorolac Tromethamine 10 mg 12/22/24 08:46 12/22/24 08:53 Ketorolac 10 Mg Tablet PO 12/22/24 08:47 10 mg ONCE ONE Administration MDM - Abdominal Pain MDM Narrative Medical decision making narrative: This patient comes in with left-sided abdominal pain as described above. Her symptoms seem more suspicious to be from a kidney stone which she has had in the past. She states that she did take a urine test about a week and half ago and it was negative. Urinalysis here shows no sign of infection but there is some microscopic hematuria. Urine test however is positive. I did obtain an ultrasound which shows an intrauterine at about 5 weeks gestation. There is no sign of ectopic . There is a corpus luteum on the left adnexa. This patient is okay to be discharged home. I did provide prescription for pain and nausea medicine. Lab Data Labs: Lab Results 12/22/24 12/22/24 Range/Units 08:50 09:41 Urine Color Yellow (Yellow) Urine Appearance Clear (Clear) Urine pH 6.0 (5.0-8.5) Ur Specific Arnold >= 1.030 (1.000-1.030) Urine Protein Negative (Negative) Urine Glucose (UA) Negative (Negative) Urine Ketones Negative (Negative) Urine Blood Trace-intact A (Negative) Urine Nitrite Negative (Negative) Urine Bilirubin Negative (Negative) Urine Urobilinogen 0.2 (0.2-1.0) Ur Leukocyte Esterase Negative (Negative) Urine RBC 2-5 A (0-2) Urine WBC 0-2 (0-5) Ur Squamous Epith Cells Few (None-Few) Urine Bacteria None (None) Urine HCG, Qual POSITIVE H (Negative) Discharge Plan Discharge Clinical Impression: Abdominal pain, Patient Disposition: Home, Self-Care Condition: Stable Additional Instructions: Follow up with MD for 1st OB appointment. Take medication as needed and directed. Return if worsening. Prescriptions: New hydrocodone-acetaminophen 5-325 mg tablet 1 tab PO Q4-6H PRN (Reason: pain) Qty: 15 0RF ondansetron HCl 4 mg tablet 4 mg PO Q6H Qty: 20 0RF ketorolac 10 mg tablet 10 mg PO TID 5 Days Qty: 15 0RF No Action Linzess 290 mcg capsule 290 mcg PO DAILY valacyclovir [Valtrex] 500 mg tablet 500 mg PO BID hydroxyzine HCl 50 mg tablet 50 mg PO QHS PRN Follow Up/Referrals: Kaylee Trejo MD [Primary Care Provider, Family Practice] Stand Alone Forms: [employer] Info Instructions
[2024-12-22] MEDS: KETOROLAC 10 MG TABLET PO (08:53)
[2024-12-22 08:59] LABS: Appearance Urine Clear (Clear)
--- OUTSIDE RECORDS SUMMARY | 2024-12-22 09:05 | XMS_ITS | Clinical Summary ---
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 Operator Name Role Phone Kaylee Trejo MD Primary Care Provider [phone] Allergies Active Allergy Reactions Criticality Noted Date Comments Sulfa Antibiotics Hives 04/25/2018 Medications hydrOXYzine (ATARAX) 10 MG tablet Take 10 mg by mouth 3 times daily as needed for itching Active Vit-Fe Fumarate-FA ( MULTIVITAMIN W/IRON) 27-0.8 MG tablet Take 1 tablet by mouth daily Active albuterol (PROAIR HFA) 108 (90 Base) MCG/ACT inhaler Inhale 2 puffs into the lungs as needed 9 Active IRON PO Take 1 tablet by mouth daily 9 Active HYDROcodone-aceta minophen (NORCO) 5-325 MG tablet Take 1 tablet by mouth every 6 hours as needed for severe pain 10 tablet 9 Active Active Problems Problem Noted Date Diagnosed Date Encounter for triage in patient Indication for care in labor or delivery 019 Social History Tobacco Use Types Packs/Day Years Used Date Smoking Tobacco: Former Smokeless Tobacco: Never Alcohol Use Standard Drinks/Week Comments Not Currently 0 (1 standard drink = 0.6 oz pur e alcohol) Comments No Sex and Gender Information Value Date Recorded Sex Assigned at Not on file Legal Sex Female 8:33 AM CDT Gender Identity Not on file Sexual Orientation Not on file Last Filed Vital Signs Vital Sign Reading Time Taken Comments Blood Pressure 128/79 10/12/2019 9:00 AM CDT Pulse 98 02/26/2019 6:15 PM [employer] Temperature 35.9 C (96.6 F) 10/12/2019 1:28 AM CDT Respiratory Rate 18 10/12/2019 1:23 AM CDT Oxygen Saturation 97% 10/12/2019 9:00 AM CDT Inhaled Oxygen Concentration - - Weight 72.6 kg (160 lb) 10/12/2019 1:28 AM CDT Height 162.6 cm (5' 4) 10/12/2019 1:28 AM CDT Body Mass Index 27.46 10/12/2019 1:28 AM CDT Plan of Treatment Not on file Care Teams Pretzel Twisting Machine Operator Relationship Specialty Start Date End Date Kaylee Trejo MD [address] [address] PCP - General 08/30/18
--- OUTSIDE RECORDS SUMMARY | 2024-12-22 09:05 | XMS_ITS | CCD ---
Author Name Interface, [id number] Address [address] [place] [address] [place] [address] Reason for Visit Social History Date Name Value 11/01/2024 Sex Female
--- OUTSIDE RECORDS SUMMARY | 2024-12-22 09:05 | XMS_ITS | Clinical Summary ---
Author Organization [facility] Address [address] [place] [address] Care Team Providers Care Wall Man Name Role Phone Kaylee Trejo MD Primary Care Provider [phone] Source Comments You are receiving this document as you are listed as the primary care provider,follow-up provider, or the patient has been referred to you for consultation.This is in compliance with the Medicare and[facility] EHR Incentive Program,which states Providers who transition their patient to another setting of careor provider of care or refers their patient to another provider of care shouldprovide summary care record for each transition of care or referral. [facility] Allergies Active Allergy Reactions Criticality Noted Date Comments Sulfa Antibiotics Hives High 03/15/2019 Medications No known medications Active Problems No known active problems Social History Tobacco Use Types Packs/Day Years Used Date Smoking Tobacco: Some Days Smokeless Tobacco: Never Comments No Sex and Gender Information Value Date Recorded Sex Assigned at Not on file Legal Sex Female 11:56 AM CDT Gender Identity Not on file Sexual Orientation Not on file Last Filed Vital Signs Vital Sign Reading Time Taken Comments Blood Pressure 119/65 03/15/2019 10:25 AM [employer] Pulse 79 03/15/2019 10:25 AM [employer] Temperature 36.2 C (97.1 F) 03/15/2019 10:25 AM [employer] Respiratory Rate 16 03/15/2019 10:2 5 AM [employer] Oxygen Saturation 97% 02/26/2019 12: 50 PM [employer] Inhaled Oxygen Concentration - - Weight 80.2 kg (176 lb 12.8 oz) 019 12:50 PM [employer] Height - - Body Mass Index - - Plan of Treatment Health Maintenance Due Date Last Done Comments Cervical Cancer Screening Due 1996 Adult Preventive Visit 02/20/2014 HepB Vaccine (1) 02/20/2015 Pneumococcal Vaccine (1 of 2 - PCV) 02/20/2015 COVID-19 Vaccine (2 - season) 2024 07/29/2020 Influenza Vaccine (#1) 2024 01/09/2019 DTaP/Tdap/Td Vaccine (9 - Tdap) 08/16/2028 08/16/2018, 05/13/2017, 01/03/2012, Additional history exists Zoster/Shingles Vaccine (1 of 2) 02/20/2046 IPV (Polio) Vaccine Completed 02/15/2001, 1996, 1996, Additional history exists MCV4 Vaccine Aged Out 08/28/2007 No longer eligi ble based on patient's age to complete this topic HPV Vaccine Completed 09/18/2008, 08/28/2007 HepA Vaccine Completed 09/18/2008, 08/28/2007 Chlamydia Discontinued 03/15/2019 HIV Screening (Preventive Services) Completed 03/15/2019 Hep C Screening (Preventive Services) Completed 03/15/2019 Hib Vaccine Aged Out No longer eligi ble based on patient's age to complete this topic Meningococcal B Vaccine Aged Out No l onger eligible based on patient's age to complete this topic Procedures Procedure Name Priority Date/Time Associated Diagnosis Comments HIV 1/2 AG/AB 4TH GEN Routine 03/15/2019 11:08 AM [employer] Routine screening for STI (sexually transmitted infection) HEPATITIS C ANTIBODY, WITH REFLEX (ANTI-HCV) Routine 03/15/2019 11:08 AM [employer] Routine screening for STI (sexually transmitted infection) CHLAMYDIA & GC, URINE (14 YEARS AND OLDER) Routine 03/15/2019 11:08 AM [employer] Vaginal discharge from Last 3 Months or Most Recently Relevant to Health Maintenance Results * HIV 1/2 Ag/Ab 4th Generation (03/15/2019 11:08 AM [employer]) HIV 1/2 Antigen/Anti body (4th generation) Negative (Non Reactive) Negative (Non Reactive) 03/17/2019 12:09 PM [employer] [facility] Comment:HIV-1 p24 Antigen an d HIV-1/HIV-2 Antibody not detected Blood Venipuncture / Unknown 03/15/2019 11:08 AM [employer] 03/15/2019 11:08 AM [employer] April [facility] Final Result Performing Organization Address [facility] Co de Phone Number [facility] [address] [place] [address], [facility] [phone] * Chlamydia & GC, Urine (14 Years and Older) (03/15/2019 11:08 AM [employer]) Chlamydia Trachomatis STD Not Detected Not Detected 03/17/2019 6:28 PM [employer] [facility] N. gonorrhoeae STD Not Detected Not Detected 03/17/2019 6:28 PM [employer] [facility] Urine Non-blood Collection / Unknown 03/15/2019 11:08 AM [employer] 03/15/2019 11:15 AM [employer] Narrative [facility] - 03/17/2019 6:28 PM [employer] Test performed by Molecular Detection April [facility] Final Result Performing Organization Address [facility] de Phone Number [facility] [address] [place] [address], [facility] [phone] * Hepatitis C Antibody, with Reflex (03/15/2019 11:08 AM [employer]) Pathologist [facility] Hepatitis C Antibody Negative (Non Reactive) Negative (Non Reactive) 03/17/2019 12:09 PM [employer] [facility] Comment:Antibodies to HCV no t detected. Does not exclude the possiblity of exposure to HCV. Blood Venipuncture / Unknown 03/15/2019 11:08 AM [employer] 03/15/2019 11:08 AM [employer] April [facility] Final Result Performing Organization Address [facility] Co de Phone Number [facility] [address] [place] [address], [facility] [phone] from Last 3 Months or Most Recently Relevant to Health Maintenance Care Teams Wall Man Relationship Specialty Start Date End Date Kaylee Trejo MD [address] [place] [address] PCP - General Family Practice 02/26/19
--- OUTSIDE RECORDS SUMMARY | 2024-12-22 09:06 | XMS_ITS | Clinical Summary ---
Author Organization [facility] Address [facility] [place] [address] Care Team Providers Care Freight Car Cleaner Delta System Name Role Phone Kaylee Trejo MD Primary Care Provider [phone] Allergies Active Allergy Reactions Criticality Noted Date Comments Etonogestrel Rash 07/13/2022 Rash with itching Sulfa (Sulfonamide Antibiotics) Hives High 12/05 Sulfasalazine Hives 05/13/2017 Medications hydrOXYzine HCL (ATARAX) 25 mg tabletIndication s:Anxiety Take 0.5-1 Tablets (12.5-25 mg) by mouth 3 times daily if needed for Anxiety. 60 Tablet 1 07/24/2022 Active Linzess 290 mcg cap capsule Take 1 Capsule by mouth once daily. 09/22/2023 Active levonorgestrel-e thinyl estrad (0.1mg-20mcg) 0.1-20 mg-mcg tabletIndication s:Encounter for female control Take 1 Tablet by mouth once daily. 84 Tablet 1 08/27/2024 Active valACYclovir 1 gram tabletIndication s:Genital herpes simplex, unspecified site TAKE 1 TABLETS BY MOUTH DAILY. 90 Tablet 09/05/2024 Active Active Problems Problem Noted Date Diagnosed Date Bipolar II disorder 12/13/2021 Borderline personality disorder 03/22/2021 Sleep difficulties 01/03/2018 Moderate episode of recurrent major depressive d isorder 11/07/2017 Panic disorder without agora phobia with moderate panic attacks 11/07/2017 Posttraumatic stress disorder 11/07/2017 Jaw pain 02/17/2013 Eating disorder, unspecified 01/29/2013 Healthy infant or child 01/03/2012 Resolved Problems Problem Noted Date Diagnosed Date Resolved Date 03/23/2021 06/13/2023 Overview (03/23/2021): Estimated Date of Delivery: 09/04/21 Patient's last menstrual period was 11/28/2020 (approximate). Last Tdap- 01/09/2019 Last Flu vaccine- 08/16/2018 Glucose (GTT) result- too early Allergies Allergen Reactions Sulfa (Sulfonamide Antibiotics) Hives Sulfasalazine Hives OB History Para Term AB Living 4 1 1 0 2 1 SAB IAB Ectopic Multiple Live Births 1 1 0 0 1 # Outcome Date GA Lbr Wild/2nd Weight Sex Delivery Anes PTL Lv 4 Current 3 SAB 08/2020 2 Term 11/01/18 40w6d F CS-LTranv EPIDURAL N AYESHA Comments: pushed x 3 hours, no progress-- proceeded with c- Complications: Failure to progress in labor Name: Jessy Stevens 1 IAB 07/2013 Obstetric Comments EAB @ 16 yo Create lab flowsheet for OB labs- Component Latest Ref Rng & Units 03/22/2021 03/22/2021 03/22/2021 9:54 AM 9:54 AM 9:54 AM HEMOGLOBIN 12.0 - 16.0 g/dL 13.5 MCV 80 - 100 fL 91 RUBELLA IGG ANTIBODY Positive 4.39 ANTIBODY SCREEN Negative Negative SPECIMEN EXPIRATION DATE/TIME 03/25/21 23:59 VARICELLA ZOSTER IGG ANTIBODY HIV-1/HIV-2 ANTIBODY Non-Reactive Non-Reactive ABORH A Rh Positive HBSAG Nonreactive Nonreactive TREPONEMA PALLIDUM Negative Negative HEMOGLOBIN A1C SCREENING <=6.4 % 5.5 Component Latest Ref Rng & Units 03/22/2021 03/22/2021 9:54 AM 9:54 AM HEMOGLOBIN 12.0 - 16.0 g/dL MCV 80 - 100 fL RUBELLA IGG ANTIBODY ANTIBODY SCREEN Negative SPECIMEN EXPIRATION DATE/TIME VARICELLA ZOSTER IGG ANTIBODY Positive 1,417.0 HIV-1/HIV-2 ANTIBODY Non-Reactive ABORH HBSAG Nonreactive TREPONEMA PALLIDUM Negative HEMOGLOBIN A1C SCREENING <=6.4 % Past Medical History: . Date No Hospitalizations No Significant Past Medical History Past Surgical History: . Laterality Date SECTION 2018 GANGLION CYST EXCISION Right 04/2020 right wrist OTHER Left 05/2020 mass removed from left thumb No data on file. Problems (from 03/22/21 to present) No problems associated with this episode. Lexie Headley RN.....03/23/2021 2:12 PM 04/11/2018 03/23/2021 Overview (09/26/2018): Estimated Date of Delivery: 10/26/18 No LMP recorded (lmp unknown). Patient is . Last Tdap- 08/16/2018 Last Flu vaccine- not on file Glucose (GTT) result- Component Latest Ref Rng & Units 07/24/2018 HEMOGLOBIN 12.0 - 16.0 g/dL 11.1 (L) MCV 80 - 100 fL 95 GLUCOSE,GESTATIONAL 65 - 139 mg/dL 92 TREPONEMA PALLIDUM Negative Negative 20 week US: IMPRESSION: 1.Cephalic presentation. 2.No anatomical abnormalities identified. 3.Composite ultrasound age 20 weeks 4 days with JUAN DANIEL of 10/26/2018 with an earlier established JUAN DANIEL of 10/26/2018. Allergies Allergen Reactions Sulfa (Sulfonamide Antibiotics) Hives Sulfasalazine Hives Obstetric History T0 L0 SAB0 TAB0 Ectopic0 Multiple0 Live Births0 # Outcome Date GA Lbr Wild/2nd Weight Sex Delivery Anes PTL Lv 1 Current Create lab flowsheet for OB labs- Component Latest Ref Rng & Units 03/01/2018 03/01/2018 03/01/2018 3:01 PM 3:01 PM 3:01 PM ANTIBODY SCREEN Negative Negative SPECIMEN EXPIRATION DATE/TIME 03/04/18 23:59 HEMOGLOBIN 12.0 - 16.0 g/dL 12.5 MCV 80 - 100 fL 95 RUBELLA IGG ANTIBODY Negative 0.62 (L) HEMOGLOBIN A1C SCREENING <6.4 % 5.0 ABORH A Rh Positive HBSAG Nonreactive Nonreactive HEPATITIS C ANTIBODY Non-Reactive Non-Reactive HIV-1/HIV-2 ANTIBODY Non-Reactive Non-Reactive TREPONEMA PALLIDUM Negative Negative Past Medical History: Diagnosis Date No Hospitalizations No Significant Past Medical History Past Surgical History: Procedure Laterality Date NO PREVIOUS SURGERY No data on file. Problems (from 03/01/18 to present) No problems associated with this episode. OLIVA Saavedra.....04/11/2018 10:10 AM History of eating disorder 11/07/2017 0 10/15/2018 Major depressive disorder, s celina episode, moderate 03/03/2013 11/07/2017 Anxiety and depression 02/17/201311/07 Adjustment disorder with depressed mood 05/17/2012 11/07/2017 Encounters Date Type Department Care Team Description 10/24/2024 Telephone [facility] [address] [place] [address] Kaylee Trejo MD Referral (DENTAL) from Last 3 Months Immunizations Immunization Administration Dates Next Due AMB Influenza, IIV4 PF (=>6 mos Flulaval,Fluzone Fluarix)(Flu Clinic Only) 01/09/2019 COVID-19 vaccine (Moderna 100mcg/0.5mL) PF, MDV 11/09/2020,07/29/2020 DTaP 02/15/2001, 8,1996,07/04,1996 Hepatitis A (Peds) 09/18/2008,08/28/2007 Human Papilloma Virus Vaccine 09/18/2008, 008 Inactivated Polio Vaccine 02/15/2001,01/1997,1996,04/25 MMR 11/02/2018,02/15/2001,03/12/1997 Meningococcal Vaccine (Menactra) 08/28/2007 Tdap 08/16/2018,05/13/2017,01/03/2012 Varicella Vaccine 01/03/2012,08/28/2007,10/12/18 98 Family History Medical History Relation Name Comments No Known Problems Brother 2 No Known Problems Brother 3 Alcoholism Father Nick stevens Anxiety disorder Father Nick stevens Drug Abuse Father Nick stevens Heart failure Father Nick stevens Cancer Maternal Grandmother Alcoholism Mother Clarissa eastman Anxiety disorder Mother Clarissa eastman Depression Mother Clarissa eastman Hyperparathyroidism Mother Clarissa eastman Mental illness Mother Clarissa eastman Anxiety disorder Sister 1 Caitlin ayse No Known Problems Sister 2 No Known Problems Sister 3 Anesthesia Malignant Hyperthermia No Family History Anesthesia Problem No Family History Relation Name Status Comments Brother 1 Drowned age 10 Brother 2 Alive Brother 3 Alive Father Nick stevens Maternal Grandmother Mother Clarissa eastman Alive Sister 1 Caitlin tavera Alive Sister 2 Alive Sister 3 Alive Social History Tobacco Use Types Packs/Day Years Used Date Smoking Tobacco: Former Cigarettes 0.3 0.4 0 10/03/2017 - 2018 Passive Smoke Exposure: Past Smokeless Tobacco: Never Comments:socially while catarino jacob Alcohol Use Standard Drinks/Week Comments Yes 0 (1 standard drink = 0.6 oz pure alcohol) rarely-- maybe twice a month at most PHQ-2 Answer Date Recorded PHQ-2 TOTAL SCORE 4 07/24/2022 Social Connections Answer Date Recorded Do you often feel lonely or isolated from those around you? 0 05/01/2024 Financial Resource Strain Answer Date R ecorded Difficulty of Paying Living Expenses 3 05/01/2024 Difficulty of Paying Living Expenses Not on file 05/01/2024 Food Insecurity Answer Date Recorded Do you worry your food will run out before you are able to buy more? 1 05/01/2024 Transportation Needs Answer Date Record ed Does lack of transportation keep you from medica l appointments? 1 05/01/2024 Does lack of transportation keep you from work, meetings or getting things that you need? 1 05/01/2024 Housing Stability Answer Date Recorded What is your housing situation today? 1 05/01/2024 Utilities Answer Date Recorded Do you have trouble paying f or utilities (for example, heat, electricity, water, phone)? 1 05/01/2024 Comments No Sex and Gender Information Value Date Recorded Sex Assigned at Not on file Legal Sex Female 8:42 AM INSTITUTE DIRECTOR Gender Identity Not on file Sexual Orientation Not on file Obstetrics History Para Term AB IAB SAB Ectopic Multiple Livin g Live Births 5 1 1 0 3 1 1 0 1 1 Date Outcome GA Total Labor Labor/2nd/3rd Weight Sex Type Anes PTL Ayesha A1 A5 Name Clin 4 IAB 2018 Term 40w 6d F CS-LT ranv Epidur al N Livin g Jessyrichard Stevens Complications:Failure to pro faustino in labor (HC) Delivery Location:[facility] Comments:pushed x 3 ho urs, no progress-- proceeded with c- 06/202 1 SAB 7w0 d 2 AB Comments EAB @ 16 years old and again at age 26. Last Filed Vital Signs Vital Sign Reading Time Taken Comments Blood Pressure 107/70 08/26/2024 11:11 AM CDT Pulse 70 08/26/2024 11:11 AM CDT Temperature 36.8 C (98.3 F) 05/29/2024 7:47 AM CDT Respiratory Rate 16 07/13/2022 10:09 AM CDT Oxygen Saturation 97% 05/29/2024 7:47 AM CDT Inhaled Oxygen Concentration - - Weight 72.1 kg (159 lb) 08/26/2024 11:11 AM CDT Height 166 cm (5' 5.35) 03/06/2023 2:28 PM INSTITUTE DIRECTOR Body Mass Index 26.17 03/06/2023 2:28 PM INSTITUTE DIRECTOR Plan of Treatment Health Maintenance Due Date Last Done Comments Hepatitis B series for 19+ (1 of 3 - 19+ 3-dose series) 02/20/2015 Depression screening for age 12+ 07/25/2023 07/24/2022, 11/10/2021, 11/08/2021, Additional history exists Pap test for age 21-65 08/25/2023 08/24/2020, 2017 BMI (ht and wt on same day) for age 18+ 03/06/2024 03/06/2023, 01/24/2021, 12/21/2020, Additional history exists COVID-19 vaccine series ( season) 2024 11/09/2020, 07/29/2020 Influenza Vaccine (#1) 2024 01/09/2019 Tetanus booster 08/16/2028 08/16/2018, 05/03, 01/03/2012 RSV vaccine for adults or (1 - 1-dose 75+ series) 02/20/2071 HPV series for age 9-45 Completed 09/18/2008, 08/27 Hepatitis C screening for age 18-79 Completed 03/01/2018 HIV for age 15-65 Completed 03/22/2021, 03/01/2018 Pneumococcal series for age 6-49 Aged Out No longer eligible based on patient's age to complete this topic Procedures Procedure Name Priority Date/Time Associated Diagnosis Comments ANTI HIV 1/2 Routine 03/22/2021 9:54 AM INSTITUTE DIRECTOR , unspecified gestational age (HC) COSTUME MISTRESS THIN PREP PAP SCREEN IMAGED Routine 08/24/2020 12:06 PM CDT Pap smear for cervical cancer screening ANTI HCV Routine 03/01/2018 3:01 PM INSTITUTE DIRECTOR Encounter for supervision of normal first in first trimester (HC) from Last 3 Months or Most Recently Relevant to Health Maintenance Results * ANTI HIV 1/2 (03/22/2021 9:54 AM INSTITUTE DIRECTOR) HIV-1/HIV-2 ANTIBODY Non-Reacti ve Non-Reacti ve 03/22/2021 5:46 PM INSTITUTE DIRECTOR [facility] Comment:HIV-1 p24 and HIV-1/ HIV-2 Ab not detected. Blood BLOOD SPECIMEN / Unknown Venipuncture / Unknown 03/22/2021 9:54 AM INSTITUTE DIRECTOR 03/22/2021 9:56 AM INSTITUTE DIRECTOR Alecia Granda MD SEND OUTS Fi nal Result [facility] [address] [place] [address], * COSTUME MISTRESS THIN PREP PAP SCREEN IMAGED (08/24/2020 12:06 PM CDT) Case Report Gynecologic Cytology Report Case: [id number] Authorizing Provider: Ilene Madrid MD Collected: 08/24/2020 1206 Ordering Location: [facility] Received: 08/24/2020 1206 Clinic First Screen: Cee Slade Specimen: COSTUME MISTRESS ThinPrep Vial Screening, Cervical 09/03/2020 9:04 AM CDT [facility] INTERPRETATION/ RESULT NEGATIVE FOR INTRAEPITHELIAL LESION OR MALIGNANCY (NIL) (none) 09/03/2020 9:04 AM CDT [facility] at 0904 CDT ORGANISM(S) Shift in earnest suggestive of bacterial vaginosis 09/03/2020 9:04 AM CDT [facility] SPECIMEN ADEQUACY Satisfactory for evaluation Endocervical component present 09/03/2020 9:04 AM CDT [facility] HPV REQUEST HPV if ASCUS 09/03/2020 9:04 AM CDT [facility] Date of LMP 08/16/2020 09/03/2020 9:04 AM CDT [facility] Last Pap Date 12/13/17 09/03/2020 9:04 AM CDT [facility] Last Pap Result NIL 9:04 AM CDT [facility] Abnormal Pap or Normanna Bx in last 5 years No 09/03/2020 9:04 AM CDT [facility] Menstrual Status Regular Periods 09/03/2020 9:04 AM CDT [facility] Normanna Bx Done Today No 09/03/2020 9:04 AM CDT [facility] Additional Information None given 09/03/2020 9:04 AM CDT [facility] Comment: Cytology is screened at [facility] - [address] [address] and [facility] - [address] [place] [address] and [facility] - [address] [place] [address] Interpreted at [facility] - [address], [place] [address] Automated Review Successful 09/03/2020 9:04 AM CDT [facility] Comment:Specimen processed s uccessfully by automated real estate services administrator device, ThinPrep Imaging System, [employer] Note The pap test is a screening technique, not a diagnostic procedure. It is used primarily to screen for squamous cancers and precursor lesions. Published studies have shown that it is subject to both false negative and false positive results. The pap test should not be used as the sole means to diagnose or exclude pre-malignant and malignant lesions. 09/03/2020 9:04 AM CDT [facility] Other (Cervical) Non-Blood / Unknown 08/24/2020 12:06 PM CDT 08/24/2020 12:06 PM CDT us Ilene Madrid MD PATHOLOGY/CYTOLOGY Kelsey wyatt Result [facility] [address] [place] [address], * ANTI HCV (03/01/2018 3:01 PM INSTITUTE DIRECTOR) HEPATITIS C ANTIBODY Non-React mike Non-React mike 03/01/2018 9:16 PM INSTITUTE DIRECTOR [facility] Comment:Antibodies to HCV no t detected; does not exclude the possibility of exposure to HCV. Blood BLOOD SPECIMEN / Unknown Venipuncture / Unknown 03/01/2018 3:01 PM INSTITUTE DIRECTOR 03/01/2018 3:03 PM INSTITUTE DIRECTOR us Sheeren [place] SEND OUTS Final R esult [facility] [address] [place] [address], from Last 3 Months or Most Recently Relevant to Health Maintenance Insurance [facility] [employer]UAL[employer] INS Advance Directives * Full Code (Latest Code Status on File) Date Activated Date Inactivated Comments 03/18/2013 4:52 PM 03/25/2013 1:57 PM Care Teams Freight Car Cleaner Delta System Relationship Specialty Start Date End Date Kaylee Trejo MD [address] [place] [address] PCP - General Family Practice 06/05/18
--- OUTSIDE RECORDS SUMMARY | 2024-12-22 09:06 | XMS_ITS | CCD ---
Author Name Interface, [id number] [facility] Address [address] [place] [address] [place] [address] Reason for Visit Social History Date Name Value 11/01/2024 Sex Female
[2024-12-22 09:52] LABS: Ur HCG Qualitative* POSITIVE (Negative)
--- NOTE | 2024-12-22 10:05 | CRLHL7_ITS ---
For Patients: As a result of the Century Cures Act, medical imaging exams and procedure reports are released immediately into your electronic medical record. You may view this report before your referring provider. If you have questions, please contact your health care provider. INDICATION: Abdominal pain and positive test TECHNIQUE: Ultrasound OB pelvis transabdominal and transvaginal. Real-time jang-scale imaging of the pelvis was performed. COMPARISON: None. FINDINGS: Intrauterine gestation: Single with mean sac diameter of 0.4 centimeters. There is an another anechoic region adjacent to the gestational sac seen on the longitudinal view on image 250, but this is likely artifactual, as this is not seen on other views. No embryo or yolk sac visualized. Perigestational hemorrhage: None. Ovaries and adnexa: Left ovarian corpus luteum with internal reticulation, likely hemorrhagic corpus luteum. Suspicious pelvic fluid collections: None. IMPRESSION: Beckford intrauterine . Estimated gestational age of 2 weeks, 6 days by LMP is not concordant with estimated size by mean sac diameter. Consider repeat ultrasound in 14 or more days to evaluate for embryo with cardiac activity and for better dating. Left hemorrhagic corpus luteum. Dictated by Pham Ren MD @ 12/22/2024 10:55:25 AM (Electronically Signed)
[2024-12-22 11:11] VITALS: BP 101/66; PULSE 66; RESP 16; O2SAT 99
== END 2024-12-22 11:13 | disposition home or self-care (01) ==
PROVIDERS: Emergency Provider Emergency Medicine Emergency Medical Services; PCP Family Medicine
DX: R10.9 Unspecified abdominal pain (principal); Z3A.01 Less than 8 weeks gestation of pregnancy
CPT/HCPCS: 76817; 81001; 81025; 93976; 99284; A9270

== ENCOUNTER 2025-01-27 15:12 | Day surgery (SDC) | payer BC, SELFPAY ==
[2025-01-27] VITALS (15 sets, daily range): BP systolic 98–123; BP diastolic 63–78; PULSE 57–98; RESP 12–24; TEMP 36.4–36.8; O2SAT 92–100; BMI 24.1
--- OUTSIDE RECORDS SUMMARY | 2025-01-27 15:16 | XMS_ITS | CCD ---
Author Name Interface, [id number] [facility] Address [address] [place] [address] [place] [address] Reason for Visit Social History Date Name Value 11/01/2024 Sex Female
--- OUTSIDE RECORDS SUMMARY | 2025-01-27 15:16 | XMS_ITS | Clinical Summary ---
Author Organization [facility] Address [address] [place] [address] Care Team Providers Care Senior Lead Project Manager Name Role Phone Kaylee Trejo MD Primary Care Provider [phone] Source Comments You are receiving this document as you are listed as the primary care provider,follow-up provider, or the patient has been referred to you for consultation.This is in compliance with the Medicare andOhio State [facility] Hospitalcaid EHR Incentive Program,which states Providers who transition their patient to another setting of careor provider of care or refers their patient to another provider of care shouldprovide summary care record for each transition of care or referral. [facility] Allergies Active Allergy Reactions Criticality Noted Date [...] Comments Blood Pressure 119/65 03/15/2019 10:25 AM DIESEL TECHNICIAN MECHANIC Pulse 79 03/15/2019 10:25 AM DIESEL TECHNICIAN MECHANIC Temperature 36.2 C (97.1 F) 03/15/2019 10:25 AM DIESEL TECHNICIAN MECHANIC Respiratory Rate 16 03/15/2019 10:2 5 AM DIESEL TECHNICIAN MECHANIC Oxygen Saturation 97% 02/26/2019 12: 50 PM DIESEL TECHNICIAN MECHANIC Inhaled Oxygen Concentration - - Weight 80.2 kg (176 lb 12.8 oz) 019 12:50 PM DIESEL TECHNICIAN MECHANIC Height - - Body Mass Index - [...] AG/AB 4TH GEN Routine 03/15/2019 11:08 AM DIESEL TECHNICIAN MECHANIC Routine screening for STI (sexually transmitted infection) HEPATITIS C ANTIBODY, WITH REFLEX (ANTI-HCV) Routine 03/15/2019 11:08 AM DIESEL TECHNICIAN MECHANIC Routine screening for STI (sexually transmitted infection) CHLAMYDIA & GC, URINE (14 YEARS AND OLDER) Routine 03/15/2019 11:08 AM DIESEL TECHNICIAN MECHANIC Vaginal discharge from Last 3 Months or Most Recently Relevant to Health Maintenance Results * HIV 1/2 Ag/Ab 4th Generation (03/15/2019 11:08 AM DIESEL TECHNICIAN MECHANIC) HIV 1/2 Antigen/Anti body (4th generation) Negative (Non Reactive) Negative (Non Reactive) 03/17/2019 12:09 PM DIESEL TECHNICIAN MECHANIC [facility] Comment:HIV-1 p24 Antigen an d HIV-1/HIV-2 Antibody not detected Blood Venipuncture / Unknown 03/15/2019 11:08 AM DIESEL TECHNICIAN MECHANIC 03/15/2019 11:08 AM DIESEL TECHNICIAN MECHANIC [facility] Final Result Performing Organization Address [facility] Co de Phone Number [facility] [address] [place] [address], [facility] [phone] * Chlamydia & GC, Urine (14 Years and Older) (03/15/2019 11:08 AM DIESEL TECHNICIAN MECHANIC) Chlamydia Trachomatis STD Not Detected Not Detected 03/17/2019 6:28 PM DIESEL TECHNICIAN MECHANIC [facility] N. gonorrhoeae STD Not Detected Not Detected 03/17/2019 6:28 PM DIESEL TECHNICIAN MECHANIC [facility] Urine Non-blood Collection / Unknown 03/15/2019 11:08 AM DIESEL TECHNICIAN MECHANIC 03/15/2019 11:15 AM DIESEL TECHNICIAN MECHANIC Narrative [facility] - 03/17/2019 6:28 PM DIESEL TECHNICIAN MECHANIC Test performed by Molecular Detection [facility] Final Result Performing Organization Address [facility] de Phone Number [facility] [address] [place] [address], [facility] [phone] * Hepatitis C Antibody, with Reflex (03/15/2019 11:08 AM DIESEL TECHNICIAN MECHANIC) Pathologist [facility] Hepatitis C Antibody Negative (Non Reactive) Negative (Non Reactive) 03/17/2019 12:09 PM DIESEL TECHNICIAN MECHANIC [facility] Comment:Antibodies to HCV no t detected. Does not exclude the possiblity of exposure to HCV. Blood Venipuncture / Unknown 03/15/2019 11:08 AM DIESEL TECHNICIAN MECHANIC 03/15/2019 11:08 AM DIESEL TECHNICIAN MECHANIC [facility] Final Result Performing Organization Address [facility] Co de Phone Number [facility] [address] [place] [address], [facility] [phone] from Last 3 Months or Most Recently Relevant to Health Maintenance Care Teams Senior Lead Project Manager Relationship Specialty Start Date End Date Kaylee Trejo MD [address] [place] [address] PCP - General Family Practice 02/26/19
--- OUTSIDE RECORDS SUMMARY | 2025-01-27 15:16 | XMS_ITS | Clinical Summary ---
Author Organization [facility] Address [address] [place] [address] Care Team Providers Care Latex Thread Machine Operator Name Role Phone Kaylee Trejo MD Primary Care Provider [phone] Allergies Active Allergy Reactions Criticality Noted Date [...] AM CDT Pulse 98 02/26/2019 6:15 PM LEATHER FLESHER Temperature 35.9 C (96.6 F) 10/12/2019 1:28 AM CDT Respiratory Rate 18 10/12/2019 1:23 AM CDT Oxygen Saturation 97% 10/12/2019 9:00 AM CDT Inhaled Oxygen Concentration - - Weight 72.6 kg (160 lb) 10/12/2019 1:28 AM CDT Height 162.6 cm (5' 4) 10/12/2019 1:28 AM CDT Body Mass Index 27.46 10/12/2019 1:28 AM CDT Plan of Treatment Not on file Care Teams Latex Thread Machine Operator Relationship Specialty Start Date End Date Kaylee Trejo MD [address] [address] PCP - General 08/30/18
--- OUTSIDE RECORDS SUMMARY | 2025-01-27 15:16 | XMS_ITS | Clinical Summary ---
Author Organization [facility] Address [facility] [place] [address] Care Team Providers Care Conveyor Attendant Name Role Phone Kaylee Trejo MD Primary Care Provider Allergies Active Allergy Reactions Criticality Noted Date [...] No problems associated with this episode. Lexie Fam, OLIVA.....04/11/2018 10:10 AM History of eating disorder 11/07/2017 0 10/15/2018 Major depressive disorder, s celina episode, moderate 03/03/2013 11/07/2017 Anxiety and depression 02/17/201311/07 Adjustment disorder with depressed mood 05/17/2012 11/07/2017 Encounters Date Type Department Care Team Description 12/26/2024 Travel 12/23/2024 Telephone [facility] [address] [place] [address] Kaylee Trejo MD Appointment 12/22/2024 Orders Only [facility] Scanner 1 scan: (1-Ord) [place], URINALYSIS, 12/22/2024 12/22/2024 Orders Only [facility] Scanner 1 scan: (1-Ord) [facility], OB TRANSVAGINAL, 12/22/2024 from Last 3 Months Immunizations Immunization Administration Dates Next Due AMB Influenza, IIV4 PF (=>6 mos Flulaval,Fluzone Fluarix)(Flu Clinic Only) 01/09/2019 COVID-19 vaccine (Moderna 100mcg/0.5mL) PFMIS 11/09/2020,07/29/2020 DTaP 02/15/2001, 8,1996,07/04,1996 Hepatitis A (Peds) 09/18/2008,08/28/2007 Human Papilloma Virus Vaccine 09/18/2008, 008 Inactivated Polio Vaccine 02/15/2001,01/1997,1996,04/25 MMR 11/02/2018,02/15/2001,03/12/1997 Meningococcal Vaccine (Menactra) 08/28/2007 Tdap 08/16/2018,05/13/2017,01/03/2012 Varicella Vaccine 01/03/2012,08/28/2007,10/12/18 98 Family History Medical History Relation Name Comments No Known Problems Brother 2 No Known Problems Brother 3 Alcoholism Father Nick stevens Anxiety disorder Father Nickopal stevens Drug Abuse Father Nick stevens Heart failure Father Nick stevens Cancer Maternal Grandmother Alcoholism Mother Clarissa eastman Anxiety disorder Mother Clarissa eastman Depression Mother Clarissa eastman Hyperparathyroidism Mother Clarissa eastman Mental illness Mother Clarissa eastman Anxiety disorder Sister 1 Caitlin tavera No Known Problems Sister 2 No Known [...] on file Legal Sex Female 8:42 AM 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 PROCESS 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 Gender Identity Not on file Sexual Orientation Not on file Obstetrics History Para Term AB IAB SAB Ectopic Multiple Livin g Live Births 5 1 1 0 3 1 1 0 1 1 Date Outcome GA Total Labor Labor/2nd/3rd Weight Sex Type Anes PTL Ayesha A1 A5 Name Clin 05/201 4 IAB 2018 Term 40w 6d F CS-LT ranv Epidur al N Evy Stevens Complications:Failure to pro faustino in labor (HC) Delivery Location:[facility] Comments:pushed x 3 ho urs, no progress-- proceeded with c- 1 SAB 7w0 d 2 AB Comments [...] 166 cm (5' 5.35) 03/06/2023 2:28 PM BONE PROCESS OPERATOR Body Mass Index 26.17 03/06/2023 2:28 PM BONE PROCESS OPERATOR Plan of Treatment Upcoming Encounters Date Type Department Care Team (Late st Contact Info) Description 02/02/2025 9:20 AM BONE PROCESS OPERATOR Office Visit [facility] [address] [place], [place] [phone] [place] [address] [place], [place] [phone] Health Maintenance Due Date Last Done Comments Hepatitis B series for 19+ (1 of 3 - 19+ 3-dose series) 02/20/2015 Depression screening for age 12+ 07/25/2023 07/24/2022, 11/10/2021, 11/08/2021, Additional history exists Pap test for age 21-65 08/25/2023 08/24/2020, 2017 BMI (ht and wt on same day) for age 18+ 03/06/2024 03/06/2023, 01/24/2021, 12/21/2020, Additional history exists Influenza Vaccine (#1) 2024 01/09/2019 Tetanus booster [...] Procedure Name Priority Date/Time Associated Diagnosis Comments SCAN-PATHOLOGY REPORT 12/22/2024 12:00 AM CDT SCAN-ULTRASOUND REPORT 12/22/2024 12:00 AM CDT ANTI HIV 1/2 Routine 03/22/2021 9:54 AM BONE PROCESS OPERATOR , unspecified gestational age (HC) RN PACU THIN PREP PAP SCREEN IMAGED Routine 08/24/2020 12:06 PM CDT Pap smear for cervical cancer screening ANTI HCV Routine 03/01/2018 3:01 PM BONE PROCESS OPERATOR Encounter for supervision of normal first in first trimester (HC) from Last 3 Months or Most Recently Relevant to Health Maintenance Results * SCAN-PATHOLOGY REPORT (12/22/2024 12:00 AM CDT) us Scanner OTHER Final Result * SCAN-ULTRASOUND REPORT (12/22/2024 12:00 AM CDT) Anatomical Region Laterality Modality Other us Scanner OTHER Final Result * ANTI HIV 1/2 (03/22/2021 9:54 AM BONE PROCESS OPERATOR) HIV-1/HIV-2 ANTIBODY Non-Reacti ve Non-Reacti ve 03/22/2021 5:46 PM BONE PROCESS OPERATOR [facility] Comment:HIV-1 p24 and HIV-1/ HIV-2 Ab not detected. Blood BLOOD SPECIMEN / Unknown Venipuncture / Unknown 03/22/2021 9:54 AM BONE PROCESS OPERATOR 03/22/2021 9:56 AM BONE PROCESS OPERATOR us Alecia Granda MD SEND OUTS Fi nal Result [facility] [address] [place] [address], [place] * RN PACU THIN PREP PAP SCREEN IMAGED (08/24/2020 12:06 PM CDT) Case Report Gynecologic Cytology Report Case: [id number] Authorizing Provider: Ilene Madrid MD Collected: 08/24/2020 1206 Ordering Location: [facility] Received: 08/24/2020 1206 Clinic First Screen: Cee Slade Specimen: RN PACU ThinPrep Vial Screening, Cervical 09/03/2020 9:04 AM CDT [facility] INTERPRETATION/ RESULT NEGATIVE FOR INTRAEPITHELIAL LESION OR MALIGNANCY (NIL) (none) 09/03/2020 9:04 AM CDT [facility] at 0904 CDT ORGANISM(S) Shift in earnest suggestive of bacterial vaginosis 09/03/2020 9:04 AM CDT [facility] SPECIMEN ADEQUACY Satisfactory for evaluation Endocervical component present 09/03/2020 9:04 AM CDT [facility] HPV REQUEST HPV if ASCUS 09/03/2020 9:04 AM CDT [facility] Date of LMP 08/16/2020 09/03/2020 9:04 AM CDT [facility] Last Pap Date 12/13/17 09/03/2020 9:04 AM CDT [facility] Last Pap Result NIL 9:04 AM CDT [facility] Abnormal Pap or Hollister Bx in last 5 years No 09/03/2020 9:04 AM CDT [facility] Menstrual Status Regular Periods 09/03/2020 9:[address] [facility] Hollister Bx Done Today No 09/03/2020 9:[address] [facility] Additional Information None given 09/03/2020 9:04 AM CDT [facility] Comment: Cytology is screened at [facility] - [address], [place] [address] and [facility] - [address] [place] [address] and [facility] - [address] [place] [address] Interpreted at [facility] - [address], [place] [address] Automated Review Successful 09/03/2020 9:04 AM T [facility] Comment:Specimen processed s uccessfully by automated facility security officer device, ThinPrep Imaging System, [employer] Note The pap test is a screening technique, not a diagnostic procedure. It is used primarily to screen for squamous cancers and precursor lesions. Published studies have shown that it is subject to both false negative and false positive results. The pap test should not be used as the sole means to diagnose or exclude pre-malignant and malignant lesions. 09/03/2020 9:[address] [facility] Other (Cervical) Non-Blood / Unknown 08/24/2020 12:06 PM CDT 08/24/2020 12:06 PM CDT us lIene Madrid MD PATHOLOGY/CYTOLOGY Kelsey wyatt Result [facility] [address] [place] [address], [place] * ANTI HCV (03/01/2018 3:01 PM BONE PROCESS OPERATOR) HEPATITIS C ANTIBODY Non-React mike Non-React mike 03/01/2018 9:16 PM BONE PROCESS OPERATOR [facility] Comment:Antibodies to HCV no t detected; does not exclude the possibility of exposure to HCV. Blood BLOOD SPECIMEN / Unknown Venipuncture / Unknown 03/01/2018 3:01 PM BONE PROCESS OPERATOR 03/01/2018 3:03 PM BONE PROCESS OPERATOR us Shereen AUSTIN SEND OUTS Final R esult [facility] [address] [place] [address], [place] from Last 3 Months or Most Recently Relevant to Health Maintenance Insurance [facility] [place] [address] [employer] Advance Directives * Full Code (Latest Code Status on File) Date Activated Date Inactivated Comments 03/18/2013 4:52 PM 03/25/2013 1:57 PM Care Teams Conveyor Attendant Relationship Specialty Start Date End Date Kaylee Trejo MD [address] [place] [address] PCP - General Family Practice 06/05/18
--- NOTE | 2025-01-27 15:41 | CRLHL7_ITS ---
For Patients: As a result of the Century Cures Act, medical imaging exams and procedure reports are released immediately into your electronic medical record. You may view this report before your referring provider. If you have questions, please contact your health care provider. INDICATION: Excessive bleeding and cramping 4 weeks status post TECHNIQUE: Ultrasound pelvis transvaginal for better assessment or to better visualize the endometrium. Real-time sonographic images with spectral and color Doppler imaging of the ovaries were obtained. COMPARISON: None FINDINGS: Uterus: 10.2 x 5.4 x 7.7 cm. Incidental note made of moderately dilated sub arcuate veins throughout the subserosal myometrium. Otherwise the myometrium is grossly preserved. Endometrium: Transvaginal imaging was performed to better evaluate the endometrium. Endometrial thickness measures 20.4 millimeters with extensive heterogeneous vascular material. Right ovary measures 3.0 x 1.9 x 2.1 cm and left ovary measures 4.9 x 2.4 x 2.4 cm. No ovarian or adnexal masses. There is likely a involuting follicle within the left ovary with minimal nonvascular internal septation. Cul-de-sac: No significant free fluid. IMPRESSION: 1. Markedly thickened heterogeneous endometrium with intensely vascular material commensurate with retained products of conception. 2. Incidental note made of markedly dilated sub arcuate veins within the uterus which can be seen in the setting of pelvic congestion syndrome. Correlate with history and clinical symptoms. Dictated by Elfego Cruz MD @ 01/27/2025 4:59:57 PM (Electronically Signed)
[2025-01-27 15:45] LABS: Hematocrit* 38.7 % (33.0-51.0); Hemoglobin* 12.3 gm/dL (12.0-16.0); Immature Granulocytes Abs Auto 0.01 K/uL (0.00-0.30); Immature Granulocytes Pct Auto 0.1 %; Lymphocytes Absolute Auto 2.32 K/uL (0.90-2.90); Mean Corpuscular HGB Conc 32 gm/dL (32-36); Mean Corpuscular Hemoglobin 30 pg (26-34); Mean Corpuscular Volume 95 fL (80-100); RDW Coefficient of Variation % 11.7 % (11.5-15.5); Red Blood Count* 4.09 m/uL (4.00-5.20); White Blood Count* 7.92 K/uL (4.50-11.00)
[2025-01-27 15:48] LABS: Slide Review Reflex No
--- OUTSIDE RECORDS SUMMARY | 2025-01-27 16:09 | XMS_ITS | CCD ---
Author Name Interface, [id number] [facility] Address [address] [place] [address] [place] [address] Reason for Visit Social History Date Name Value 11/01/2024 Sex Female
--- OUTSIDE RECORDS SUMMARY | 2025-01-27 16:09 | XMS_ITS | CCD ---
Author Name Interface, [id number] [facility] Address [address] [place] [address] [place] [id number] Reason for Visit Social History Date Name Value 11/01/2024 Sex Female
[2025-01-27 16:14] LABS: Albumin* 4.8 g/dL (3.3-5.0); Chloride* 100 mmol/L (96-114); Potassium* 3.3 mmol/L (3.6-5.1); Sodium* 139 mmol/L (135-149)
[2025-01-27 16:17] LABS: Alanine Aminotransferase* 14 U/L (4-35); Alkaline Phosphatase* 58 U/L (40-150); Anion Gap 14 mEq/L (7-15); Aspartate Amino Transferase* 18 U/L (12-35); Bilirubin Total* 0.2 mg/dL (0.1-1.5); Blood Urea Nitrogen* 15 mg/dL (5-24); Calcium* 8.9 mg/dL (8.4-10.6); Carbon Dioxide* 25 mmol/L (20-32); Creatinine* 0.7 mg/dL (0.5-1.5); Est. Creatinine Clearance* 107.67; Estimated Glomerular Filt Rate 121 ml/min; Glucose* 83 mg/dL (60-115); Total Protein* 7.6 g/dL (6.0-8.3)
--- NOTE | 2025-01-27 17:10 | ED.PREGNANCY ---
HPI - General Chief complaint: Urogenital Problems, Female Stated complaint: needs ultrasound, 1 month ago Time Seen by Provider: 01/27/25 15:33 Source: patient Mode of arrival: ambulatory Limitations: no limitations History of Present Illness HPI Narrative: Patient is a 29-year-old female presenting to the emergency department for vaginal bleeding and pelvic pain. She is A3 with 3 medically induced abortions. She states she was 5 weeks [facility] . [facility] . She states since then she has been having pelvic pain and consistent vaginal bleeding. She states she goes through a pad or tampon every 2 hours. She has similar symptoms like this last time she had an she states. She required admission for retained products of conception. She has not had any fevers or chills that she is aware of. Has been having some nausea. Using Zofran for her nausea. [facility] and [facility] recommended she come to the emergency department for an ultrasound and repeat test. She states she has had persistent positive test since the . No other concerns noted. Her OB care is usually through the [facility]. Related Data Home Medications ?Medication ?Instructions ?Recorded ?Confirmed valacyclovir 500 mg tablet 500 mg PO BID 02/04/22 01/27/25 (Valtrex) linaclotide 290 mcg capsule 290 mcg PO DAILY 07/26/24 01/27/25 (Linzess) Previous Rx's ?Medication ?Instructions ?Recorded ondansetron HCl 4 mg tablet 4 mg PO Q6H #20 tabs 12/22/24 Allergies Allergy/AdvReac Type Severity Reaction Status Date / Time Sulfa (Sulfonamide Allergy Severe Hives Verified 12/22/24 08:29 Antibiotics) etonogestrel (From Nexplanon) Allergy Verified 12/22/24 08:29 Review of Systems Status of ROS: Reports: 10 or more systems reviewed and unremarkable except as noted in History and below PFSH PFSH Social History Smoking Status: Former smoker Do you use any of these nicotine containing products: None Second hand tobacco smoke exposure: No How often do you have a drink containing alcohol: monthly or less How often do you have six or more drinks on one occasion: Never AUDIT-C Alcohol total score: 1 Non-prescribed substance use: denies use service: No Exam Narrative: Exam Narrative: Const: Well-nourished, Well-developed, in mild distress Eyes: PERRL, no conjunctival injection, and symmetrical lids HENT: Atraumatic external nose and ears. Moist mucous membranes. Neck: Symmetric, trachea midline, No thyromegaly. CVS: RRR, No murmurs or gallops. Peripheral pulses 2+ and equal in all extremities RESP: Unlabored respiratory effort. Clear to auscultation bilaterally. GI: Mild lower abdominal tenderness, Nondistended, No rebound or guarding. Moderate Pelvic tenderness MSK:Extremities w/o deformity, Normal Active ROM Skin: Warm, Dry. No rashes or lesions. Neuro: Normal Muscle tone, No focal neurological deficits. Psych: Awake, Alert, & Oriented x3. Appropriate mood and affect. Const: Vital Signs, click to edit/add: Vital Signs - 24 hr 01/27/25 15:22 01/27/25 16:49 01/27/25 17:00 Temperature 97.9 F Pulse Rate 73 74 Pulse Rate [Pulse Oximeter] 75 Respiratory Rate 24 Blood Pressure [Ri ght Upper Arm] 123/78 Pulse Oximetry 97 92 92 Oxygen Delivery Me thod Room Air Course Vital Signs Vital signs: Initial Vital Signs Temperature 97.9 F 01/27/25 15:22 Temperature Source Temporal Artery Scan 01/27/25 15:22 Pulse Rate 75 01/27/25 15:22 Respiratory Rate 24 01/27/25 15:22 Blood Pressure 123/78 01/27/25 15:22 Blood Pressure Mean 93 01/27/25 15:22 Blood Pressure Position Sitting 01/27/25 15:22 Pulse Oximetry 97 01/27/25 15:22 Oxygen Delivery Method Room Air 01/27/25 15:22 Vital Signs Temperature 97.9 F 01/27/25 15:22 Pulse Rate 75 01/27/25 15:22 Respiratory Rate 24 01/27/25 15:22 Blood Pressure 123/78 01/27/25 15:22 Pulse Oximetry 97 01/27/25 15:22 Oxygen Delivery Method Room Air 01/27/25 15:22 Temperature 97.9 F 01/27/25 15:22 Pulse Rate 74 01/27/25 17:00 Respiratory Rate 24 01/27/25 15:22 Blood Pressure 123/78 01/27/25 15:22 Pulse Oximetry 92 01/27/25 17:00 Oxygen Delivery Method Room Air 01/27/25 15:22 MDM - OB/Uterine Contractions MDM Narrative Medical decision making narrative: Patient is a 29-year-old female presenting for concerns of retained products of conception. Differential includes endometitis, pelvic inflammatory disease. Seems unlikely to be ovarian torsion at this considering her description of symptoms. Will do an ultrasound though for better evaluation. Will also order CBC, CMP, type and screen, hCG quantitative. Lab work returned showing no concerning abnormalities other than a slightly low potassium. HCG is 5242. Ultrasound returns and shows concerning signs of retained products of conception. There also appears to be signs of pelvic congestion syndrome. Due to this finding I spoke to Dr. Alonso, she came in to evaluate the patient and will do a D&C. Patient is agreeable to this plan. She is hemodynamically stable at this time. Lab Data Labs: Lab Results 01/27/25 Range/Units 15:40 WBC 7.92 (4.50-11.00) K/uL RBC 4.09 (4.00-5.20) m/uL Hgb 12.3 (12.0-16.0) gm/dL Hct 38.7 (33.0-51.0) % MCV 95 (80-100) fL MCH 30 (26-34) pg MCHC 32 (32-36) gm/dL RDW Coeff of Dante 11.7 (11.5-15.5) % Plt Count 277 (140-440) K/uL Neut % (Auto) 64.1 (42.0-72.0) % Lymph % (Auto) 29.3 (20-44) % [place] % (Auto) 5.6 (0.0-11.0) % Eos % (Auto) 0.8 (0.0-7.0) % Baso % (Auto) 0.1 (0.0-3.0) % Neut # (Auto) 5.08 (1.7-7.0) K/uL Lymph # (Auto) 2.32 (0.90-2.90) K/uL [place] # (Auto) 0.40 (0.00-0.90) K/UL Eos # (Auto) 0.06 (0.00-0.50) K/uL Baso # (Auto) 0.01 (0.00-0.30) K/uL Abs Immat Gran (auto) 0.01 (0.00-0.30) K/uL Imm/Tot Granulo (auto) 0.1 % Sodium 139 (135-149) mmol/L Potassium 3.3 L (3.6-5.1) mmol/L Chloride 100 (96-114) mmol/L Carbon Dioxide 25 (20-32) mmol/L Anion Gap 14 (7-15) mEq/L BUN 15 (5-24) mg/dL Creatinine 0.7 (0.5-1.5) mg/dL Estimated Creat Clear 107.67 Estimated GFR 121 ml/min Glucose 83 (60-115) mg/dL Calcium 8.9 (8.4-10.6) mg/dL Total Bilirubin 0.2 (0.1-1.5) mg/dL AST 18 (12-35) U/L ALT 14 (4-35) U/L Alkaline Phosphatase 58 (40-150) U/L Total Protein 7.6 (6.0-8.3) g/dL Albumin 4.8 (3.3-5.0) g/dL HCG, Quant 5242.30 mIU/mL Blood Type A Positive Antibody Screen NEGATIVE Imaging Data Transvaginal ultrasound: Attestation: I have reviewed the pertinent imaging results. Radiologist's impression: 1. Markedly thickened heterogeneous endometrium with intensely vascular material commensurate with retained products of conception. 2. Incidental note made of markedly dilated sub arcuate veins within the uterus which can be seen in the setting of pelvic congestion syndrome. Correlate with history and clinical symptoms. Dictated by Elfego Cruz MD @ 01/27/2025 4:59:57 PM Discharge Plan Discharge Clinical Impression: Retained products of conception Patient Disposition: XFER to OR Condition: Guarded Follow Up/Referrals: Kaylee Trejo MD [Primary Care Provider, Family Practice]
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
[2025-01-27] MEDS: DOXYCYCLINE HYCLATE 200 MG in 0.9 % SODIUM CHLORIDE 250 ml 250 ML 250 MG IVPB (19:09)
[2025-01-27] MEDS: LACTATED RINGERS 1000 ML 1,000 ML 125 ML IV (19:18)
[2025-01-27] MEDS: BUPIVACAINE 0.25% 30 ML INJECTION (20:18)
[2025-01-27] MEDS: LIDOCAINE 1% MDV 20 ML INJECTION (20:19)
--- NOTE | 2025-01-27 20:35 | P.GYNPRC_ITS ---
Procedure Note Date of procedure: 01/27/25 Will [facility] bill your pro fee for this procedure?: Yes Pre-op diagnosis: Retained products of conception following medically induced four weeks ago. Post-op diagnosis: Retained products of conception following medically induced four weeks ago. Procedure: Suction curettage. Anesthesia: MAC and local (Paracervical block) Complications: None. Surgeon: Cami Alonso MD Estimated blood loss (mL): 5 Urine Output (mL): 200 Pathology: specimen obtained, sent to pathology (Products of conception) Condition: stable Disposition: same day Findings: Moderate amount of products of conception within the uterus. Procedure Description: After obtaining informed consent, the patient was taken to the operating room where she received monitored anesthesia care. She was prepared and draped in the normal, sterile fashion in the dorsal lithotomy position. Two hundred mg of IV doxycycline was administered intravenously. An examination was performed under anesthesia which demonstrated a normal sized anteverted uterus. An open-sided bivalve speculum was placed into the vagina and the cervix easily visualized. The anterior lip of the cervix was grasped with a single-tooth tenaculum for traction. A paracervical block was administered using a total of 20 mL of a 50:50 mixture of 1% lidocaine and 0.25% Marcaine, plain. A sound was gently inserted through the cervical os into the uterus to the level of the fundus. Sound length was 8 cm. The cervix was gently dilated using Hegar dilators to a #10 dilator. A 10 mm rigid, curved suction cannula was advanced through the cervical os into the uterine cavity. Gentle suction was applied, and the uterine lining gently curetted. A moderate amount of products of conception and blood was removed. The suction cannula was removed. The uterine lining was gently explored using a sharp curette, and a gritty feel was felt throughout. One final pass was made with the suction cannula, no further tissue was recovered. All instruments were then removed. The patient tolerated the procedure well. Sponge, lap, and needle counts were reported as correct x2. The patient was taken to the recovery room awake and in stable condition. Postoperative debrief was performed which confirmed the procedure, specimen to be sent in formalin, and blood loss.
--- NOTE | 2025-01-27 20:36 | SUR.OPER ---
200 cc of urine emptied at start of procedure
--- NOTE | 2025-01-27 20:42 | P.ANES_ITS ---
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
--- NOTE | 2025-01-27 20:42 | W.ANESCHARGE ---
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
[2025-01-27] MEDS: ACETAMINOPHEN 500 MG TABLET 1000 MG PO (21:33)
== END 2025-01-27 23:04 | disposition home or self-care (01) ==
LOC: ED 17:28 → OR 18:06 → OB 18:06
PROVIDERS: Emergency Provider Student in an Organized Health Care Education/Training Program; PCP Family Medicine; Visit Provider Obstetrics & Gynecology
PROC: (CPT 59812; principal; 2025-01-27 20:00)
DX: O07.1 Delayed or excessive hemorrhage following failed attempted termination of pregnancy (principal)
CPT/HCPCS: 59812; 00940; 36415; 76830; 80053; 84702; 85025; 86850; 86900; 86901; 99140; 99285; J2003; A9270; J0665; J1100; J1885; J2405; J2704; J3010; J3490; J7050; J7120